=== PATIENT | female | born 1940 | race Caucasian/White ===

== ENCOUNTER 2021-12-23 10:07 | Emergency (ER) | payer MEDICARE, OTHER, SELFPAY ==
[2021-12-23 10:15] VITALS: BP 183/93; PULSE 86; RESP 18; TEMP 36.8; O2SAT 97; BMI 26.6
[2021-12-23 10:30] VITALS: BP 170/95; PULSE 86; RESP 19; O2SAT 96
--- NOTE | 2021-12-23 10:36 | ED.CHESTPAIN ---
HPI - Chest Pain General Chief Complaint: Chest Pain Stated Complaint: Chest pains, racing heart, fatigue, nausea Time Seen by Provider: 12/23/21 10:23 History of Present Illness HPI narrative: This 81-year-old female comes in reporting brief episodes of chest pain over the past week. She states that these last a few seconds and are not related to exertion. She did have a longer episode lasting about 5 minutes this morning. She had some nausea but no vomiting and had a sense of fatigue. Currently she is not having any chest discomfort. She states that she exercises regularly and typically walks more than a mi in a loop around her house. She does not have any symptoms when exerting herself. She does not report any shortness of breath. She did feel some increased heart rate this morning and states that this may have been related to some anxiety symptoms. She does have diabetes and is treating hypertension but her cholesterol has been managed with diet and activity. She is not a smoker. Related Data Home Medications Medication Instructions Recorded Confirmed alendronate 70 mg tablet mg PO 12/23/21 metformin 500 mg tablet mg 12/23/21 Allergies Allergy/AdvReac Type Severity Reaction Status Date / Time codeine Allergy Verified 12/23/21 10:24 epinephrine Allergy Verified 12/23/21 10:24 [id number] Reductase Allergy Verified 12/23/21 10:13 Inhibitor GLUTEN Allergy Uncoded 12/23/21 10:14 Review of Systems Status of ROS Reports: 10 or more systems reviewed and unremarkable except as noted in History and below Narrative Constitutional: No fevers, no weight gain or loss. Eyes: No discharge. No vision changes. HENT: No congestion, no sore throat, no ear pain. Cardiovascular: No palpitations. Chest pain as described above. Respiratory: No shortness of breath, no wheezes, no cough. Gastrointestinal: No abdominal pain, no vomiting, no diarrhea. Genitourinary: No dysuria, no hematuria. Musculoskeletal: Normal range of motion. Skin: No rashes, no pruritis. Neurological: No dizziness, weakness, sensory change, speech change. Endo/Heme/Allergies: No bruising or bleeding. No polydipsia. Pysch: no suicidality, no anxiety, no insomnia. All other systems reviewed and are negative. PFSH PFSH Social History Smoking Status: Never smoker Do you use any of these nicotine containing products: None Second hand tobacco smoke exposure: No How often do you have a drink containing alcohol: monthly or less How often do you have six or more drinks on one occasion: Never AUDIT-C Alcohol total score: 1 Non-prescribed substance use: denies use Exam Narrative Exam Narrative: Constitutional: Well-developed, well-nourished, no acute distress. HEENT: Normocephalic, atraumatic. Neck: Normal range of motion. Nontender. Supple. Heart: Regular. No murmurs. Normal rate. Intact distal pulses. Lungs: Clear to auscultation. No chest discomfort. No wheezes, rhonchi, or rales. Abdomen: Normal bowel sounds. Nontender. No rebound tenderness. Genitalia: Deferred. Back: No midline tenderness. Normal range of motion. Extremities: Normal range of motion. No injury. Skin: Intact. No rash. Warm. No erythema or pallor. Neurologic: No altered sensation. No weakness. Alert and oriented. Psychiatric: No suicidality. No anxiety or depression. No insomnia. Nursing notes and vitals signs are reviewed. Const Vital Signs, click to edit/add: Vital Signs - 24 hr 12/23/21 10:15 12/23/21 10:15 12/23/21 11:00 Temperature 98.3 F Pulse Rate [Right Pulse Oximeter] 86 79 Respiratory Rate 18 12 Blood Pressure [Left Upper Arm] 183/93 H 183/93 H 148/82 H Pulse Oximetry 97 95 Oxygen Delivery Method Room Air Room Air 12/23/21 11:31 12/23/21 10:30 12/23/21 10:45 Temperature Pulse Rate [Right Pulse Oximeter] 78 86 82 Respiratory Rate 13 19 17 Blood Pressure [Left Upper Arm] 139/73 170/95 H Pulse Oximetry 95 96 95 Oxygen Delivery Method Room Air Room Air Room Air Course Vital Signs Vital signs: Initial Vital Signs Temperature 98.3 F 12/23/21 10:15 Temperature Source Temporal Artery Scan 12/23/21 10:15 Pulse Rate 86 12/23/21 10:15 Respiratory Rate 18 12/23/21 10:15 Blood Pressure 183/93 H 12/23/21 10:15 Blood Pressure Mean 123 12/23/21 10:15 Blood Pressure Position Sitting 12/23/21 10:15 Pulse Oximetry 97 12/23/21 10:15 Oxygen Delivery Method 12/23/21 10:15 Vital Signs Temperature 98.3 F 12/23/21 10:15 Pulse Rate 86 12/23/21 10:15 Respiratory Rate 18 12/23/21 10:15 Blood Pressure 183/93 H 12/23/21 10:15 Pulse Oximetry 97 12/23/21 10:15 Oxygen Delivery Method 12/23/21 10:15 Temperature 98.3 F 12/23/21 10:15 Pulse Rate 78 12/23/21 11:31 Respiratory Rate 13 12/23/21 11:31 Blood Pressure 139/73 12/23/21 11:31 Pulse Oximetry 95 12/23/21 11:31 Oxygen Delivery Method 12/23/21 11:31 MDM - Chest Pain MDM Narrative Medical decision making narrative: This patient comes in with brief episodes of chest discomfort lasting seconds usually. There was 1 episode this morning that lasted a bit longer for a few minutes. Throughout her stay here she has not had any symptoms. She has good exercise tolerance and is very active. Her EKG shows normal sinus rhythm and no sign of ST or T-wave abnormalities. Additionally lab results all returned with normal findings. This patient is going to a exercise class called [employer]. She states that she is doing frequent upper extremity exercises. It seems that her symptoms are more musculoskeletal in nature. She is okay to return home to continue current plans. Lab Data Labs: Lab Results 12/23/21 12/23/21 Range/Units 10:51 10:51 WBC 5.78 (4.50-11.00) K/uL RBC 4.77 (4.00-5.20) m/uL Hgb 13.7 (12.0-16.0) gm/dL Hct 42.2 (33.0-51.0) % MCV 89 (80-100) fL MCH 29 (26-34) pg MCHC 33 (32-36) gm/dL RDW Coeff of Conchita 14.3 (11.5-15.5) % Plt Count 265 (140-440) K/uL Neut % (Auto) 74.0 H (42.0-72.0) % Lymph % (Auto) 16.4 L (20-44) % Putnam % (Auto) 8.0 (0.0-11.0) % Eos % (Auto) 0.9 (0.0-7.0) % Baso % (Auto) 0.5 (0.0-3.0) % Neut # (Auto) 4.30 (1.7-7.0) K/uL Lymph # (Auto) 0.90 (0.90-2.90) K/uL Putnam # (Auto) 0.50 (0.00-0.90) K/UL Eos # (Auto) 0.05 (0.00-0.50) K/uL Baso # (Auto) 0.03 (0.00-0.30) K/uL Abs Immat Gran (auto) 0.01 (0.00-0.30) K/uL Sodium 140 (135-149) mmol/L Potassium 4.0 (3.6-5.1) mmol/L Chloride 108 (96-114) mmol/L Carbon Dioxide 28 (20-32) mmol/L BUN 17 (7-30) mg/dL Creatinine 0.5 (0.5-1.5) mg/dL Estimated Creat Clear 42.00 Estimated GFR 95 ml/min Glucose 110 (60-115) mg/dL Calcium 8.6 (8.4-10.6) mg/dL Troponin I < 0.01 L (0.01-0.04) ng/mL ECG Data Attestation: I personally reviewed and interpreted this ECG as follows: Interpretation: Normal sinus rhythm. Rate is 80 beats per minute. There are no ST or T-wave abnormalities. Discharge Plan Discharge Clinical Impression: Atypical chest pain Patient Disposition: Home, Self-Care Condition: Stable Instructions: Chest Wall Pain (ED) Prescriptions: No Action metformin 500 mg tablet alendronate 70 mg tablet PO Label Comments: TAKE 1 TABLET BY MOUTH ONE TIME A WEEK IN THE MORNING ON AN EMPTY STOMACH AND WITH FULL GLASS OF WATER. DO NOT LIE DOWN FOR 1 HOUR Follow Up/Referrals: Ayaan Gomez MD [Primary Care Provider] - Stand Alone Forms: [facility] Info Instructions
[2021-12-23 10:45] VITALS: PULSE 82; RESP 17; O2SAT 95
[2021-12-23 10:55] LABS: Basophils Absolute Auto 0.03 K/uL (0.00-0.30); Basophils Percent Auto 0.5 % (0.0-3.0); Eosinophils Absolute Auto 0.05 K/uL (0.00-0.50); Eosinophils Percent Auto 0.9 % (0.0-7.0); Hematocrit 42.2 % (33.0-51.0); Hemoglobin* 13.7 gm/dL (12.0-16.0); Immature Granulocytes Abs Auto 0.01 K/uL (0.00-0.30); Lymphocytes Percent Auto 16.4 % (20-44); Mean Corpuscular HGB Conc 33 gm/dL (32-36); Mean Corpuscular Hemoglobin 29 pg (26-34); Mean Corpuscular Volume 89 fL (80-100); Platelet Count* 265 K/uL (140-440); RDW Coefficient of Variation % 14.3 % (11.5-15.5); Red Blood Count 4.77 m/uL (4.00-5.20); White Blood Count* 5.78 K/uL (4.50-11.00)
[2021-12-23 11:00] VITALS: BP 148/82; PULSE 79; RESP 12; O2SAT 95
[2021-12-23 11:03] LABS: Slide Review Reflex No
[2021-12-23 11:11] LABS: Chloride* 108 mmol/L (96-114); Sodium* 140 mmol/L (135-149)
[2021-12-23 11:14] LABS: Blood Urea Nitrogen* 17 mg/dL (7-30); Carbon Dioxide* 28 mmol/L (20-32); Creatinine* 0.5 mg/dL (0.5-1.5); Estimated Glomerular Filt Rate 95 ml/min; Glucose* 110 mg/dL (60-115)
[2021-12-23 11:15] LABS: Calcium* 8.6 mg/dL (8.4-10.6)
[2021-12-23 11:27] LABS: Troponin I* < 0.01 ng/mL (0.01-0.04)
[2021-12-23 11:31] VITALS: BP 139/73; PULSE 78; RESP 13; O2SAT 95
== END 2021-12-23 11:52 | disposition home or self-care (01) ==
PROVIDERS: Emergency Provider Emergency Medicine Emergency Medical Services; PCP Surgery
DX: R07.89 Other chest pain (principal)
CPT/HCPCS: 36415; 80048; 84484; 85025; 93005; 99284

== ENCOUNTER 2022-04-28 12:15 | Outpatient (CLI) | payer MEDICARE, OTHER, SELFPAY | END 2022-04-28 12:16 | disposition home or self-care (01) | LOC: OP CLINIC 12:17 | PROVIDERS: PCP Surgery; Visit Provider Internal Medicine Gastroenterology | DX: Z12.11 Encounter for screening for malignant neoplasm of colon (principal); K63.5 Polyp of colon; K57.30 Diverticulosis of large intestine without perforation or abscess without bleeding | CPT/HCPCS: 45385; 88305; J2250; J3010 ==

== ENCOUNTER 2023-06-05 12:42 | Outpatient (CLI) | payer MEDICARE, OTHER, SELFPAY | END 2023-06-05 12:43 | disposition home or self-care (01) | LOC: AMB 06-08 04:29 | PROVIDERS: PCP Surgery; Visit Provider Student in an Organized Health Care Education/Training Program | DX: R55 Syncope and collapse (principal); R53.1 Weakness; R42 Dizziness and giddiness | CPT/HCPCS: A0425; A0427 ==

== ENCOUNTER 2023-06-05 13:17 | Inpatient (IN) | payer MEDICARE, OTHER, SELFPAY ==
[2023-06-05] VITALS (28 sets, daily range): BP systolic 145–186; BP diastolic 74–95; PULSE 55–74; RESP 16–18; TEMP 35.9–36.6; O2SAT 90–97; BMI 25.8
--- NOTE | 2023-06-05 13:22 | CRLHL7_ITS ---
For Patients: As a result of the Cures Act, medical imaging exams and procedure reports are released immediately into your electronic medical record. You may view this report before your referring provider. If you have questions, please contact your health care provider. INDICATION: Confusion. TECHNIQUE: CT head without contrast. COMPARISON: MRI brain dated 04/07/2016. FINDINGS: Cerebral parenchyma: No evidence of acute territorial infarct. No acute intraparenchymal hemorrhage. No significant mass effect/midline shift. Normal juarez-white matter differentiation. Extra-axial spaces: No extra-axial collection or hemorrhage. Ventricles: Unremarkable. Calvarium: Small right parietal scalp hematoma. No underlying skull fracture. Visualized paranasal sinuses/mastoid air cells: Polypoid mucosal thickening of the left maxillary sinus. Posterior fossa: No cerebellar tonsillar herniation. Visualized orbits: Thinning of the bilateral lenses. No acute abnormality. IMPRESSION: 1. No acute intracranial abnormality. 2. Small right parietal scalp hematoma. No underlying skull fracture. Please note that all CT scans at this facility use dose modulation, iterative reconstruction, and/or weight-based dosing when appropriate to reduce radiation dose to as low as reasonably achievable. Dictated by Seth Frank MD @ 06/05/2023 2:24:56 PM (Electronically Signed)
--- NOTE | 2023-06-05 13:53 | ED.GENADULT ---
HPI - General Adult General Date Seen: 06/05/23 <Ayaan Jackson - Last Filed: 06/05/23 16:09> Chief complaint: Altered Mental Status <Ayaan Jackson DO - Last Filed: 06/05/23 16:09> Stated complaint: AMS <Ayaan Jackson - Last Filed: 06/05/23 16:09> Time Seen by Provider: 06/05/23 13:21 <Ayaan Jackson - Last Filed: 06/05/23 16:09> Source: patient and family <Ayaan Jackson - Last Filed: 06/05/23 16:09> Mode of arrival: EMS <Ayaan Jackson - Last Filed: 06/05/23 16:09> Limitations: no limitations <Ayaan Jackson - Last Filed: 06/05/23 16:09> History of Present Illness HPI narrative: ML 2-year-old female with a history of diabetes presenting to the emergency department for an episode of amnesia for. She states her morning was going well until she got back from a walk and says she was feeling very flushed and dizzy and felt like she needed to hold onto the wall to stay up. This occurred at about 10:30. Next thing she knew she was sitting in the chair that she was walking to and it was noon. She called her daughter who came to see her and the daughter states at that time the patient very shaky. Patient is back to her baseline at this time was complaining that her scalp hurts on the right side of the posterior parietal portion. Does not know she fell or what exactly happened. She thought it might have been her blood sugar that was off. EMS was called. Patient denies chest pain, shortness of breath, lightheadedness, dysuria, abdominal pain, weakness, numbness, fevers, chills, vision changes. States she does not have a headache given that is just the outside of her head that hurts. <Ayaan Jackson DO - Last Filed: 06/05/23 16:09> Related Data Home medications: Home Medications Medication Instructions Recorded Confirmed alendronate 70 mg tablet 70 mg PO QWEEK 12/23/21 06/05/23 metformin 500 mg tablet 500 mg PO DAILY 12/23/21 06/05/23 <Ayaan Jackson DO - Last Filed: 06/05/23 16:09> Allergies/adverse reactions: Allergies Allergy/AdvReac Type Severity Reaction Status Date / Time codeine Allergy Verified 12/23/21 10:24 epinephrine Allergy Verified 12/23/21 10:24 [id number] Reductase Allergy Verified 12/23/21 10:13 Inhibitor GLUTEN Allergy Uncoded 12/23/21 10:14 <Ayaan Jackson DO - Last Filed: 06/05/23 16:09> Review of Systems Status of ROS: Reports: 10 or more systems reviewed and unremarkable except as noted in History and below <Ayaan Jackson DO - Last Filed: 06/05/23 16:09> [facility] Social History: Social History Smoking Status: Never smoker Do you use any of these nicotine containing products: None Second hand tobacco smoke exposure: No How often do you have a drink containing alcohol: monthly or less How often do you have six or more drinks on one occasion: Never AUDIT-C Alcohol total score: 1 Non-prescribed substance use: denies use <Ayaan Jackson DO - Last Filed: 06/05/23 16:09> Exam Narrative: Exam Narrative: Const: Well-nourished, Well-developed, in mild distress Eyes: PERRL, no conjunctival injection, and symmetrical lids HENT: Atraumatic external nose and ears. Moist mucous membranes. Swelling noted to the posterior right parietal bone and is tender to palpation Neck: Symmetric, trachea midline, No thyromegaly. CVS: RRR, No murmurs or gallops. Peripheral pulses 2+ and equal in all extremities RESP: Unlabored respiratory effort. Clear to auscultation bilaterally. GI: Nontender/Nondistended, No rebound or guarding. MSK:Extremities w/o deformity, Normal Active ROM Skin: Warm, Dry. No rashes or lesions. Neuro: Normal Muscle tone, Cranial nerves 2-12 grossly intact, normal [id number], normal [id number], normal gait, normal strength 5/5 upper lower extremities bilaterally, normal sensation upper and lower extremities bilaterally, normal rapid alternating movements. Psych: Awake, Alert, & Oriented x3. Appropriate mood and affect. <Ayaan Jackson DO - Last Filed: 06/05/23 16:09> Const: Vital Signs, click to edit/add: Vital Signs - 24 hr 06/05/23 13:26 06/05/23 13:30 06/05/23 14:00 Temperature 97.9 F Pulse Rate Pulse Rate [Pulse Oximeter] 61 64 59 L Respiratory Rate 16 Blood Pressure Blood Pressure [Ri ght Upper Arm] 186/89 H 173/95 H 180/89 H Pulse Oximetry 97 97 92 Oxygen Delivery Me thod Room Air Room Air Room Air 06/05/23 14:31 06/05/23 14:32 06/05/23 14:41 Temperature Pulse Rate 73 64 63 Pulse Rate [Pulse Oximeter] Respiratory Rate Blood Pressure 183/82 H 173/82 H Blood Pressure [Ri ght Upper Arm] Pulse Oximetry 90 95 93 Oxygen Delivery Me thod 06/05/23 14:45 06/05/23 14:52 06/05/23 15:00 Temperature Pulse Rate 64 59 L 61 Pulse Rate [Pulse Oximeter] Respiratory Rate Blood Pressure 168/87 H Blood Pressure [Ri ght Upper Arm] Pulse Oximetry 94 90 92 Oxygen Delivery Me thod 06/05/23 15:02 06/05/23 15:11 06/05/23 15:11 Temperature Pulse Rate 60 74 74 Pulse Rate [Pulse Oximeter] Respiratory Rate Blood Pressure 163/83 H 162/86 H 162/86 H Blood Pressure [Ri ght Upper Arm] Pulse Oximetry 93 91 91 Oxygen Delivery Me thod 06/05/23 15:15 06/05/23 15:30 06/05/23 15:31 Temperature Pulse Rate 61 62 62 Pulse Rate [Pulse Oximeter] Respiratory Rate Blood Pressure 158/78 H Blood Pressure [Ri ght Upper Arm] Pulse Oximetry 92 95 94 Oxygen Delivery Me thod 06/05/23 15:32 06/05/23 15:45 06/05/23 17:35 Temperature Pulse Rate 61 61 61 Pulse Rate [Pulse Oximeter] Respiratory Rate Blood Pressure Blood Pressure [Ri ght Upper Arm] Pulse Oximetry 93 94 93 Oxygen Delivery Me thod 06/05/23 17:36 06/05/23 17:37 06/05/23 17:45 Temperature Pulse Rate 62 60 61 Pulse Rate [Pulse Oximeter] Respiratory Rate Blood Pressure 145/85 H Blood Pressure [Ri ght Upper Arm] Pulse Oximetry 90 92 92 Oxygen Delivery Me thod 06/05/23 18:00 Temperature Pulse Rate 61 Pulse Rate [Pulse Oximeter] Respiratory Rate Blood Pressure Blood Pressure [Ri ght Upper Arm] Pulse Oximetry 92 Oxygen Delivery Me thod <Ayaan Jackson, DO - Last Filed: 06/05/23 16:09> Vital Signs, click to edit/add: Vital Signs - 24 hr 06/05/23 13:26 06/05/23 13:30 06/05/23 14:00 Temperature 97.9 F Pulse Rate Pulse Rate [Pulse Oximeter] 61 64 59 L Respiratory Rate 16 Blood Pressure Blood Pressure [Ri ght Upper Arm] 186/89 H 173/95 H 180/89 H Pulse Oximetry 97 97 92 Oxygen Delivery Me thod Room Air Room Air Room Air 06/05/23 14:31 06/05/23 14:32 06/05/23 14:41 Temperature Pulse Rate 73 64 63 Pulse Rate [Pulse Oximeter] Respiratory Rate Blood Pressure 183/82 H 173/82 H Blood Pressure [Ri ght Upper Arm] Pulse Oximetry 90 95 93 Oxygen Delivery Me thod 06/05/23 14:45 06/05/23 14:52 06/05/23 15:00 Temperature Pulse Rate 64 59 L 61 Pulse Rate [Pulse Oximeter] Respiratory Rate Blood Pressure 168/87 H Blood Pressure [Ri ght Upper Arm] Pulse Oximetry 94 90 92 Oxygen Delivery Me thod 06/05/23 15:02 06/05/23 15:11 06/05/23 15:11 Temperature Pulse Rate 60 74 74 Pulse Rate [Pulse Oximeter] Respiratory Rate Blood Pressure 163/83 H 162/86 H 162/86 H Blood Pressure [Ri ght Upper Arm] Pulse Oximetry 93 91 91 Oxygen Delivery Me thod 06/05/23 15:15 06/05/23 15:30 06/05/23 15:31 Temperature Pulse Rate 61 62 62 Pulse Rate [Pulse Oximeter] Respiratory Rate Blood Pressure 158/78 H Blood Pressure [Ri ght Upper Arm] Pulse Oximetry 92 95 94 Oxygen Delivery Me thod 06/05/23 15:32 06/05/23 15:45 06/05/23 17:35 Temperature Pulse Rate 61 61 61 Pulse Rate [Pulse Oximeter] Respiratory Rate Blood Pressure Blood Pressure [Ri ght Upper Arm] Pulse Oximetry 93 94 93 Oxygen Delivery Me thod 06/05/23 17:36 06/05/23 17:37 06/05/23 17:45 Temperature Pulse Rate 62 60 61 Pulse Rate [Pulse Oximeter] Respiratory Rate Blood Pressure 145/85 H Blood Pressure [Ri ght Upper Arm] Pulse Oximetry 90 92 92 Oxygen Delivery Me thod 06/05/23 18:00 Temperature Pulse Rate 61 Pulse Rate [Pulse Oximeter] Respiratory Rate Blood Pressure Blood Pressure [Ri ght Upper Arm] Pulse Oximetry 92 Oxygen Delivery Me thod <Mike Ibarra MD - Last Filed: 06/05/23 18:17> Course Course ED Course: 4:15 p.m. care discussed with Dr. Jackson at sign-out. Patient presents with what sounds like a syncopal episode and loss of time today. Labs demonstrate urinary tract infection, otherwise reassuring. Head CT was negative, patient is getting MRI. If this is negative, patient can be discharged from a neurologic standpoint. However, patient may need to be admitted for urinary tract infection with generalized weakness. Rocephin given for urinary tract infection. <Mike Ibarra MD - Last Filed: 06/05/23 18:17> Reevaluation(s) Time of Reevaluation #1: 18:11 <Mike Ibarra MD - Last Filed: 06/05/23 18:17> Reevaluation #1: MRI negative for acute ischemia, possible micro hemorrhages versus amyloid angiopathy which can be followed up as an outpatient. Patient is still quite dizzy in spite of Zofran, meclizine, and Ativan. Plan for admission for treatment of her urinary tract infection and vertigo. <Mike Ibarra MD - Last Filed: 06/05/23 18:17> Vital Signs Vital signs: Initial Vital Signs Temperature 97.9 F 06/05/23 13:26 Temperature Source Temporal Artery Scan 06/05/23 13:26 Pulse Rate 61 06/05/23 13:26 Respiratory Rate 16 06/05/23 13:26 Blood Pressure 186/89 H 06/05/23 13:26 Blood Pressure Mean 121 H 06/05/23 13:26 Blood Pressure Position Supine 06/05/23 13:26 Pulse Oximetry 97 06/05/23 13:26 Oxygen Delivery Method Room Air 06/05/23 13:26 Vital Signs Temperature 97.9 F 06/05/23 13:26 Pulse Rate 61 06/05/23 13:26 Respiratory Rate 16 06/05/23 13:26 Blood Pressure 186/89 H 06/05/23 13:26 Pulse Oximetry 97 06/05/23 13:26 Oxygen Delivery Method Room Air 06/05/23 13:26 Temperature 97.9 F 06/05/23 13:26 Pulse Rate 61 06/05/23 18:00 Respiratory Rate 16 06/05/23 13:26 Blood Pressure 145/85 H 06/05/23 17:36 Pulse Oximetry 92 06/05/23 18:00 Oxygen Delivery Method Room Air 06/05/23 14:00 <Ayaan Jackson DO - Last Filed: 06/05/23 16:09> Initial Vital Signs Temperature 97.9 F 06/05/23 13:26 Temperature Source Temporal Artery Scan 06/05/23 13:26 Pulse Rate 61 06/05/23 13:26 Respiratory Rate 16 06/05/23 13:26 Blood Pressure 186/89 H 06/05/23 13:26 Blood Pressure Mean 121 H 06/05/23 13:26 Blood Pressure Position Supine 06/05/23 13:26 Pulse Oximetry 97 06/05/23 13:26 Oxygen Delivery Method Room Air 06/05/23 13:26 Vital Signs Temperature 97.9 F 06/05/23 13:26 Pulse Rate 61 06/05/23 13:26 Respiratory Rate 16 06/05/23 13:26 Blood Pressure 186/89 H 06/05/23 13:26 Pulse Oximetry 97 06/05/23 13:26 Oxygen Delivery Method Room Air 06/05/23 13:26 Temperature 97.9 F 06/05/23 13:26 Pulse Rate 61 06/05/23 18:00 Respiratory Rate 16 06/05/23 13:26 Blood Pressure 145/85 H 06/05/23 17:36 Pulse Oximetry 92 06/05/23 18:00 Oxygen Delivery Method Room Air 06/05/23 14:00 <Mike Ibarra MD - Last Filed: 06/05/23 18:17> Medications Administered Medications: Generic Name Dose Route Start Last Admin Trade Name Freq PRN Reason Stop Dose Admin Lorazepam 0.25 mg 06/05/23 15:51 06/05/23 15:55 Lorazepam 2 Mg/Ml Inj IVP 0.25 mg Q6H PRN Administration Ondansetron HCl 4 mg 06/05/23 18:07 06/05/23 17:55 Ondansetron 2 Mg/Ml Inj IVP 06/05/23 18:08 4 mg ONCE ONE Administration Discontinued Medications Generic Name Dose Route Start Last Admin Trade Name Freq PRN Reason Stop Dose Admin Lactated Ringer's 1,000 mls @ 1,000 mls/hr 06/05/23 14:49 06/05/23 18:02 Lactated Ringers 1000 Ml IV 06/05/23 15:48 Infused .Q1H ONE Infusion Ceftriaxone Sodium 1 gm/ 100 mls @ 200 mls/hr 06/05/23 15:34 06/05/23 18:01 Sodium Chloride IVPB 06/05/23 15:35 200 mls/hr ONCE ONE Administration Meclizine HCl 25 mg 06/05/23 14:49 06/05/23 15:10 Meclizine Hcl 25 Mg Tablet PO 06/05/23 14:50 25 mg ONCE ONE Administration Ondansetron HCl 4 mg 06/05/23 14:36 06/05/23 14:35 Ondansetron 2 Mg/Ml Inj IVP 06/05/23 14:37 4 mg ONCE ONE Administration <Ayaan Jackson, DO - Last Filed: 06/05/23 16:09> Generic Name Dose Route Start Last Admin Trade Name Freq PRN Reason Stop Dose Admin Lorazepam 0.25 mg 06/05/23 15:51 06/05/23 15:55 Lorazepam 2 Mg/Ml Inj IVP 0.25 mg Q6H PRN Administration Ondansetron HCl 4 mg 06/05/23 18:07 06/05/23 17:55 Ondansetron 2 Mg/Ml Inj IVP 06/05/23 18:08 4 mg ONCE ONE Administration Discontinued Medications Generic Name Dose Route Start Last Admin Trade Name Freq PRN Reason Stop Dose Admin Lactated Ringer's 1,000 mls @ 1,000 mls/hr 06/05/23 14:49 06/05/23 18:02 Lactated Ringers 1000 Ml IV 06/05/23 15:48 Infused .Q1H ONE Infusion Ceftriaxone Sodium 1 gm/ 100 mls @ 200 mls/hr 06/05/23 15:34 06/05/23 18:01 Sodium Chloride IVPB 06/05/23 15:35 200 mls/hr ONCE ONE Administration Meclizine HCl 25 mg 06/05/23 14:49 06/05/23 15:10 Meclizine Hcl 25 Mg Tablet PO 06/05/23 14:50 25 mg ONCE ONE Administration Ondansetron HCl 4 mg 06/05/23 14:36 06/05/23 14:35 Ondansetron 2 Mg/Ml Inj IVP 06/05/23 14:37 4 mg ONCE ONE Administration <Mike Ibarra MD - Last Filed: 06/05/23 18:17> Medical Decision Making MDM Narrative Medical decision making narrative: Patient is an 82-year-old female presenting to the emergency department for an episode of amnesia. She can not remember about an hour and half of her day and when family arrived they said she was shaking and not acting quite right. Concerns at this time include stroke, seizure, infection, total global amnesia, syncope. Will order CBC, CMP, COVID/flu/RSV, troponin, urinalysis, magnesium, CT scan of the head. She has been fine in the emergency department but the after she states symptoms initially resolved she got up became very nauseated and dizzy again. 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 Will give her meclizine. She is also stating her right side of his face feels relatively numb compared to to the rest of her face. She states the entire right side of the face. she thinks it is getting slightly better but still not back to normal. Rest of her lab work shows no concerning findings other than a quite clear UTI. This could be the main source of all her symptoms but considering everything I will do an MRI of the brain. I spoke to [facility] and they recommended a tele neuro consult and MRI with and without contrast for seizure evaluation. Patient will be started on Rocephin for antibiotic coverage. I spoke to Dr. Albarado about this patient and he says son is the MRI is negative from a Neurological standpoint she can be discharged home. If there is any abnormalities week and call back for updates. I ordered orthostatic blood pressures. Of note she would have random episodes of hypoxia where she would feel all fine but her oxygen saturation be in the 80s. She with the plan back up into the 90s. Unsure what this is from so we did ordered a chest x-ray and I did not see abnormalities. Radiologist read is pending. This time patient will be signed out to my colleague Dr. Ibarra <Ayaan Jackson, DO - Last Filed: 06/05/23 16:09> Lab Data Labs: Lab Results 06/05/23 06/05/23 06/05/23 Range/Units 14:17 14:18 14:25 WBC 8.30 (4.50-11.00) K/uL RBC 4.84 (4.00-5.20) m/uL Hgb 13.9 (12.0-16.0) gm/dL Hct 44.1 (33.0-51.0) % MCV 91 (80-100) fL MCH 29 (26-34) pg MCHC 32 (32-36) gm/dL RDW Coeff of Conchita 14.1 (11.5-15.5) % Plt Count 239 (140-440) K/uL Neut % (Auto) 82.2 H (42.0-72.0) % Lymph % (Auto) 11.3 L (20-44) % [place] % (Auto) 5.8 (0.0-11.0) % Eos % (Auto) 0.4 (0.0-7.0) % Baso % (Auto) 0.2 (0.0-3.0) % Neut # (Auto) 6.80 (1.7-7.0) K/uL Lymph # (Auto) 0.90 (0.90-2.90) K/uL [place] # (Auto) 0.50 (0.00-0.90) K/UL Eos # (Auto) 0.03 (0.00-0.50) K/uL Baso # (Auto) 0.02 (0.00-0.30) K/uL Abs Immat Gran (auto) 0.01 (0.00-0.30) K/uL Imm/Tot Granulo (auto) 0.1 % Sodium 137 (135-149) mmol/L Potassium 3.7 (3.6-5.1) mmol/L Chloride 104 (96-114) mmol/L Carbon Dioxide 26 (20-32) mmol/L Anion Gap 7 (7-15) mEq/L BUN 21 (7-30) mg/dL Creatinine 0.6 (0.5-1.5) mg/dL Estimated GFR 90 ml/min Glucose 127 H (60-115) mg/dL Calcium 9.2 (8.4-10.6) mg/dL Magnesium 2.2 (1.5-2.6) mg/dL Total Bilirubin 0.4 (0.1-1.5) mg/dL AST 31 (12-35) U/L ALT 21 (4-35) U/L Alkaline Phosphatase 71 (40-150) U/L Troponin I < 0.01 L (0.01-0.04) ng/mL Total Protein 7.1 (6.0-8.3) g/dL Albumin 4.4 (3.3-5.0) g/dL Urine Color Yellow (Yellow) Urine Appearance Cloudy A (Clear) Urine pH 6.0 (5.0-8.5) Ur Specific Staples 1.020 (1.000-1.030) Urine Protein Negative (Negative) Urine Glucose (UA) Negative (Negative) Urine Ketones Negative (Negative) Urine Blood Trace-intact A (Negative) Urine Nitrite Positive A (Negative) Urine Bilirubin Negative (Negative) Urine Urobilinogen 0.2 (0.2-1.0) Ur Leukocyte Esterase 1+ A (Negative) Urine RBC 2-5 A (0-2) Urine WBC >100 A (0-5) Ur Squamous Epith Cells Few (None-Few) Urine Bacteria Many A (None) SARS-CoV-2 (PCR) Negative SARS-CoV-2 (Negative) Influenza Type A (PCR) Negative PCR FLU A (Negative) Influenza Type B (PCR) Negative PCR FLU B (Negative) RSV (PCR) Negative PCR RSV (Negative) POC Glucose (60-115) mg/dl POC Troponin I (0.01-0.04) ng/ml 06/05/23 06/05/23 Range/Units 16:00 18:00 WBC (4.50-11.00) K/uL RBC (4.00-5.20) m/uL Hgb (12.0-16.0) gm/dL Hct (33.0-51.0) % MCV (80-100) fL MCH (26-34) pg MCHC (32-36) gm/dL RDW Coeff of Conchita (11.5-15.5) % Plt Count (140-440) K/uL Neut % (Auto) (42.0-72.0) % Lymph % (Auto) (20-44) % [place] % (Auto) (0.0-11.0) % Eos % (Auto) (0.0-7.0) % Baso % (Auto) (0.0-3.0) % Neut # (Auto) (1.7-7.0) K/uL Lymph # (Auto) (0.90-2.90) K/uL [place] # (Auto) (0.00-0.90) K/UL Eos # (Auto) (0.00-0.50) K/uL Baso # (Auto) (0.00-0.30) K/uL Abs Immat Gran (auto) (0.00-0.30) K/uL Imm/Tot Granulo (auto) % Sodium (135-149) mmol/L Potassium (3.6-5.1) mmol/L Chloride (96-114) mmol/L Carbon Dioxide (20-32) mmol/L Anion Gap (7-15) mEq/L BUN (7-30) mg/dL Creatinine (0.5-1.5) mg/dL Estimated GFR ml/min Glucose (60-115) mg/dL Calcium (8.4-10.6) mg/dL Magnesium (1.5-2.6) mg/dL Total Bilirubin (0.1-1.5) mg/dL AST (12-35) U/L ALT (4-35) U/L Alkaline Phosphatase (40-150) U/L Troponin I (0.01-0.04) ng/mL Total Protein (6.0-8.3) g/dL Albumin (3.3-5.0) g/dL Urine Color (Yellow) Urine Appearance (Clear) Urine pH (5.0-8.5) Ur Specific Staples (1.000-1.030) Urine Protein (Negative) Urine Glucose (UA) (Negative) Urine Ketones (Negative) Urine Blood (Negative) Urine Nitrite (Negative) Urine Bilirubin (Negative) Urine Urobilinogen (0.2-1.0) Ur Leukocyte Esterase (Negative) Urine RBC (0-2) Urine WBC (0-5) Ur Squamous Epith Cells (None-Few) Urine Bacteria (None) SARS-CoV-2 (PCR) (Negative) Influenza Type A (PCR) (Negative) Influenza Type B (PCR) (Negative) RSV (PCR) (Negative) POC Glucose 115 (60-115) mg/dl POC Troponin I 0.00 L (0.01-0.04) ng/ml <Ayaan Jackson, DO - Last Filed: 06/05/23 16:09> Lab Results 06/05/23 06/05/23 06/05/23 Range/Units 14:17 14:18 14:25 WBC 8.30 (4.50-11.00) K/uL RBC 4.84 (4.00-5.20) m/uL Hgb 13.9 (12.0-16.0) gm/dL Hct 44.1 (33.0-51.0) % MCV 91 (80-100) fL MCH 29 (26-34) pg MCHC 32 (32-36) gm/dL RDW Coeff of Conchita 14.1 (11.5-15.5) % Plt Count 239 (140-440) K/uL Neut % (Auto) 82.2 H (42.0-72.0) % Lymph % (Auto) 11.3 L (20-44) % [place] % (Auto) 5.8 (0.0-11.0) % Eos % (Auto) 0.4 (0.0-7.0) % Baso % (Auto) 0.2 (0.0-3.0) % Neut # (Auto) 6.80 (1.7-7.0) K/uL Lymph # (Auto) 0.90 (0.90-2.90) K/uL [place] # (Auto) 0.50 (0.00-0.90) K/UL Eos # (Auto) 0.03 (0.00-0.50) K/uL Baso # (Auto) 0.02 (0.00-0.30) K/uL Abs Immat Gran (auto) 0.01 (0.00-0.30) K/uL Imm/Tot Granulo (auto) 0.1 % Sodium 137 (135-149) mmol/L Potassium 3.7 (3.6-5.1) mmol/L Chloride 104 (96-114) mmol/L Carbon Dioxide 26 (20-32) mmol/L Anion Gap 7 (7-15) mEq/L BUN 21 (7-30) mg/dL Creatinine 0.6 (0.5-1.5) mg/dL Estimated GFR 90 ml/min Glucose 127 H (60-115) mg/dL Calcium 9.2 (8.4-10.6) mg/dL Magnesium 2.2 (1.5-2.6) mg/dL Total Bilirubin 0.4 (0.1-1.5) mg/dL AST 31 (12-35) U/L ALT 21 (4-35) U/L Alkaline Phosphatase 71 (40-150) U/L Troponin I < 0.01 L (0.01-0.04) ng/mL Total Protein 7.1 (6.0-8.3) g/dL Albumin 4.4 (3.3-5.0) g/dL Urine Color Yellow (Yellow) Urine Appearance Cloudy A (Clear) Urine pH 6.0 (5.0-8.5) Ur Specific Staples 1.020 (1.000-1.030) Urine Protein Negative (Negative) Urine Glucose (UA) Negative (Negative) Urine Ketones Negative (Negative) Urine Blood Trace-intact A (Negative) Urine Nitrite Positive A (Negative) Urine Bilirubin Negative (Negative) Urine Urobilinogen 0.2 (0.2-1.0) Ur Leukocyte Esterase 1+ A (Negative) Urine RBC 2-5 A (0-2) Urine WBC >100 A (0-5) Ur Squamous Epith Cells Few (None-Few) Urine Bacteria Many A (None) SARS-CoV-2 (PCR) Negative SARS-CoV-2 (Negative) Influenza Type A (PCR) Negative PCR FLU A (Negative) Influenza Type B (PCR) Negative PCR FLU B (Negative) RSV (PCR) Negative PCR RSV (Negative) POC Glucose (60-115) mg/dl POC Troponin I (0.01-0.04) ng/ml 06/05/23 06/05/23 Range/Units 16:00 18:00 WBC (4.50-11.00) K/uL RBC (4.00-5.20) m/uL Hgb (12.0-16.0) gm/dL Hct (33.0-51.0) % MCV (80-100) fL MCH (26-34) pg MCHC (32-36) gm/dL RDW Coeff of Conchita (11.5-15.5) % Plt Count (140-440) K/uL Neut % (Auto) (42.0-72.0) % Lymph % (Auto) (20-44) % [place] % (Auto) (0.0-11.0) % Eos % (Auto) (0.0-7.0) % Baso % (Auto) (0.0-3.0) % Neut # (Auto) (1.7-7.0) K/uL Lymph # (Auto) (0.90-2.90) K/uL [place] # (Auto) (0.00-0.90) K/UL Eos # (Auto) (0.00-0.50) K/uL Baso # (Auto) (0.00-0.30) K/uL Abs Immat Gran (auto) (0.00-0.30) K/uL Imm/Tot Granulo (auto) % Sodium (135-149) mmol/L Potassium (3.6-5.1) mmol/L Chloride (96-114) mmol/L Carbon Dioxide (20-32) mmol/L Anion Gap (7-15) mEq/L BUN (7-30) mg/dL Creatinine (0.5-1.5) mg/dL Estimated GFR ml/min Glucose (60-115) mg/dL Calcium (8.4-10.6) mg/dL Magnesium (1.5-2.6) mg/dL Total Bilirubin (0.1-1.5) mg/dL AST (12-35) U/L ALT (4-35) U/L Alkaline Phosphatase (40-150) U/L Troponin I (0.01-0.04) ng/mL Total Protein (6.0-8.3) g/dL Albumin (3.3-5.0) g/dL Urine Color (Yellow) Urine Appearance (Clear) Urine pH (5.0-8.5) Ur Specific Sta[place] (1.000-1.030) Urine Protein (Negative) Urine Glucose (UA) (Negative) Urine Ketones (Negative) Urine Blood (Negative) Urine Nitrite (Negative) Urine Bilirubin (Negative) Urine Urobilinogen (0.2-1.0) Ur Leukocyte Esterase (Negative) Urine RBC (0-2) Urine WBC (0-5) Ur Squamous Epith Cells (None-Few) Urine Bacteria (None) SARS-CoV-2 (PCR) (Negative) Influenza Type A (PCR) (Negative) Influenza Type B (PCR) (Negative) RSV (PCR) (Negative) POC Glucose 115 (60-115) mg/dl POC Troponin I 0.00 L (0.01-0.04) ng/ml <Mike Ibarra MD - Last Filed: 06/05/23 18:17> Imaging Data CT scan - head: Radiologist's impression: 1. No acute intracranial abnormality. 2. Small right parietal scalp hematoma. No underlying skull fracture. Please note that all CT scans at this facility use dose modulation, iterative reconstruction, and/or weight-based dosing when appropriate to reduce radiation dose to as low as reasonably achievable. Dictated by Seth Frank MD @ 06/05/2023 2:24:56 PM <Ayaan Jackson DO - Last Filed: 06/05/23 16:09> ECG Data Attestation: I personally reviewed and interpreted this ECG as follows: <Ayaan Jackson DO - Last Filed: 06/05/23 16:09> Prior ECG tracings: available for review <Ayaan Jackson DO - Last Filed: 06/05/23 16:09> Interpretation: Normal sinus rhythm with a rate of 60 beats per minute, normal intervals, normal axis, no ST or T-wave abnormalities. Appears similar previous EKG on 5 <Ayaan Jackson DO - Last Filed: 06/05/23 16:09> Discharge Plan Discharge Clinical Impression: Acute UTI, Syncope, Vertigo <Ayaan Jackson DO - Last Filed: 06/05/23 16:09> Patient Disposition: Admitted As Observation <Ayaan Jackson DO - Last Filed: 06/05/23 16:09> Condition: Stable <Ayaan Jackson DO - Last Filed: 06/05/23 16:09>
[2023-06-05 14:25] LABS: Appearance Urine Cloudy (Clear); Bilirubin Urine Negative (Negative); Blood Urine Trace-intact (Negative); Color Urine Yellow (Yellow); Glucose Urine Negative (Negative); Ketones Urine Negative (Negative); Leukocyte Esterase Urine 1+ (Negative); Nitrite Urine Positive (Negative); Protein Urine Negative (Negative); Urobilinogen Urine 0.2 (0.2-1.0)
--- NOTE | 2023-06-05 14:32 | ED.NURSE ---
Patient was very dizzy and began dry heaving while in the bathroom leaving UA. Applied cold wash cloth to face and assisted back to bed. Provider updated.
[2023-06-05 14:33] LABS: Basophils Absolute Auto 0.02 K/uL (0.00-0.30); Basophils Percent Auto 0.2 % (0.0-3.0); Eosinophils Absolute Auto 0.03 K/uL (0.00-0.50); Eosinophils Percent Auto 0.4 % (0.0-7.0); Hematocrit 44.1 % (33.0-51.0); Hemoglobin* 13.9 gm/dL (12.0-16.0); Immature Granulocytes Abs Auto 0.01 K/uL (0.00-0.30); Immature Granulocytes Pct Auto 0.1 %; Lymphocytes Percent Auto 11.3 % (20-44); Mean Corpuscular HGB Conc 32 gm/dL (32-36); Mean Corpuscular Hemoglobin 29 pg (26-34); Mean Corpuscular Volume 91 fL (80-100); Monocytes Percent Auto 5.8 % (0.0-11.0); Neutrophils Percent Auto 82.2 % (42.0-72.0); Platelet Count* 239 K/uL (140-440); RDW Coefficient of Variation % 14.1 % (11.5-15.5); Red Blood Count 4.84 m/uL (4.00-5.20)
[2023-06-05 14:34] LABS: Slide Review Reflex No
[2023-06-05] MEDS: ONDANSETRON 2 MG/ML inj 4 MG IVP ×2 (14:35→17:55)
[2023-06-05 14:47] LABS: Albumin* 4.4 g/dL (3.3-5.0); Chloride* 104 mmol/L (96-114); Potassium* 3.7 mmol/L (3.6-5.1); Sodium* 137 mmol/L (135-149)
[2023-06-05 14:49] LABS: Creatinine* 0.6 mg/dL (0.5-1.5)
[2023-06-05 14:50] LABS: Alanine Aminotransferase* 21 U/L (4-35); Alkaline Phosphatase* 71 U/L (40-150); Anion Gap 7 mEq/L (7-15); Aspartate Amino Transferase* 31 U/L (12-35); Bilirubin Total* 0.4 mg/dL (0.1-1.5); Blood Urea Nitrogen* 21 mg/dL (7-30); Calcium* 9.2 mg/dL (8.4-10.6); Carbon Dioxide* 26 mmol/L (20-32); Estimated Glomerular Filt Rate 90 ml/min; Glucose* 127 mg/dL (60-115); Magnesium* 2.2 mg/dL (1.5-2.6); Total Protein* 7.1 g/dL (6.0-8.3)
[2023-06-05 14:55] LABS: Bacteria Urine Many; Squamous Epithelial Cell Urine Few (None-Few); WBC Urine >100 (0-5)
[2023-06-05 15:04] LABS: PCR FLU A Negative PCR FLU A (Negative); PCR FLU B Negative PCR FLU B (Negative); PCR RSV Negative PCR RSV (Negative); SARS PCR* Negative SARS-CoV-2 (Negative)
[2023-06-05 15:04] LABS: Troponin I* < 0.01 ng/mL (0.01-0.04)
[2023-06-05] MEDS: LACTATED RINGERS 1000 ML 1,000 ML IV (15:10)
[2023-06-05] MEDS: MECLIZINE HCL 25 MG TABLET PO (15:10)
--- NOTE | 2023-06-05 15:20 | ED.NURSE ---
Pt reporting r-sided facial numbness, notified.
--- NOTE | 2023-06-05 15:29 | CRLHL7_ITS ---
For Patients: As a result of the Century Cures Act, medical imaging exams and procedure reports are released immediately into your electronic medical record. You may view this report before your referring provider. If you have questions, please contact your health care provider. INDICATION: Hypoxia. TECHNIQUE: Chest 1 views. COMPARISON: July 18, 2019. FINDINGS: Patient is rotated. Cardiovascular and mediastinum: Heart size and vasculature are normal in caliber and appearance. Lungs and pleural spaces: Elevation of the left hemidiaphragm. Lungs are clear. No sign of infiltrate or mass. No sign of pleural effusion. No pneumothorax. Bones and soft tissues: No significant findings. IMPRESSION: Patient is rotated. No acute findings and no significant changes from the prior exam. Dictated by Kristopher Mary MD @ 06/05/2023 4:11:59 PM (Electronically Signed)
--- NOTE | 2023-06-05 15:29 | ED.NURSE ---
Pt O2 satting at ~81% on room air. Pt sleeping in room, pt roused by business writer and encouraged to take deep breaths. notified and in room as well. O2 sats remained in 80's% for approximately 2 mins, O2 then recovered into mid-90's%.
--- NOTE | 2023-06-05 15:51 | CRLHL7_ITS ---
For Patients: As a result of the Century Cures Act, medical imaging exams and procedure reports are released immediately into your electronic medical record. You may view this report before your referring provider. If you have questions, please contact your health care provider. INDICATION: Vertigo. Fall. TECHNIQUE: Brain MRI with contrast. The following sequences were obtained: Sagittal T1 weighted sequence. DWI and ADC mapping sequences. Axial FLAIR and DARRIUS T2 weighted sequences. Susceptibility weighted or GRE sequence. T1 weighted post-contrast sequence(s). 15 cc of Dotarem gadolinium based contrast agent was used. COMPARISON: Brain MRI from 04/07/2016. FINDINGS: No evidence of acute ischemia. No evidence of acute or chronic intracranial blood products. No mass or pathologic intracranial enhancement. Foci of susceptibility artifact within the high cerebral hemispheres, most compatible with microhemorrhages and possibly from amyloid angiopathy. Scattered FLAIR hyperintensities within the supratentorial white matter, typical for chronic microvascular ischemic changes. No hydrocephalus or extra-axial collections. The pituitary gland, parasellar structures and optic chiasm are normal. Posterior fossa is normal. All the major intracranial vascular structures demonstrate normal flow-related signal. The orbital contents are normal. No calvarial or skull base marrow signal abnormality. No obstructive sinus disease. Large right parietal scalp hematoma. IMPRESSION: 1. No acute ischemia or other acute intracranial pathology. 2. No mass or pathologic intracranial enhancement. 3. Susceptibility artifact within the high cerebral hemispheres, most compatible with microhemorrhages and possibly from amyloid angiopathy. 4. Mild chronic microvascular ischemic changes. Stable. 5. Right parietal scalp hematoma. Dictated by Stanley Mitchell MD @ 06/05/2023 6:09:30 PM (Electronically Signed)
[2023-06-05] MEDS: LORazepam 2 MG/ML inj 0.25 MG IVP (15:55)
[2023-06-05] MEDS: cefTRIAXone 1 GM in 0.9 % SODIUM CHLORIDE Mini-bag 100 ML IVPB (18:01)
[2023-06-05 18:14] LABS: Glucose, Point-of-Care* 115 mg/dl (60-115)
--- NOTE | 2023-06-05 18:50 | P.IMHP_ITS ---
Hospitalist- H&P: CORI History of Present Illness Date Seen: 06/05/23 Chief complaint: AMS Narrative: Loraine Jewell is a 82 year old female past medical history significant for type 2 diabetes mellitus on metformin, hypercholesterolemia, vitiligo, osteoporosis on calcium and vitamin-D, anxiety, malignant neoplasm of cervix s/p surgery 23 years ago is admitted to the medical floor from the ED for further management acute cystitis with symptomatic dizziness and weakness. Patient reports feeling her normal self last evening and when awaking this morning. Went on her usual vigorous walk this morning and returned home anticipating a zoom workout class. She tells me that when she walked into her home she started to feel flushed, felt that her face, especially the right side, was very cold and numb like (temperature was less than 10? this morning with a cold wind chill). She then reports feeling weak and dizzy (off balance, not vertiginous) and needing to use her hands to hold on to surrounding appliances/furniture to walk. This was after 10:00 a.m.. She then awoke around noon, finding herself in a wood dining chair, with a high back, which rests upon the wooden frame of the window. Her coat was on the floor though she does not remember taking it off. She initially thought maybe she fell but had no recollection then how she got to the chair. She denies any pain, bruising, scrapes of the knees, hands. She has no pain in her joints from a fall. She has a bump on the right side of her head but when speaking with her and her daughter, she very well may have struck the back of her head on the chair or window frame when sitting. When she awoke, she called her daughter who came to her home. She did not check her blood sugar but did have a cheese stick. Upon their arrival, EMS checked her blood sugar after her snack and it was 140. Currently, patient denies headache. Scalp hematoma is tender when touched. Continues to feel dizzy, off balance as she describes it, without vertigo like symptoms. Feels like she could fall. Denies recent fevers or chills. Denies nausea, vomiting, diarrhea. Denies urinary symptoms though admits urine might have been cloudy for the past several days. Patient is a nonsmoker. Rare alcohol use. Review of Systems Narrative: REVIEW OF SYSTEMS: Complete review of systems performed and negative unless otherwise stated in HPI or below. [facility] Medical History (Updated 06/05/23 @ 20:45 by Pema Ortiz PA-C) Vertigo ?R42 - Dizziness and giddiness (ICD-10) Malignant neoplasm of cervix ?C53.9 - Malignant neoplasm of cervix uteri, unspecified (ICD-10) Vitiligo ?L80 - Vitiligo (ICD-10) Anxiety ?F41.9 - Anxiety disorder, unspecified (ICD-10) Osteoporosis ?M81.0 - Age-related osteoporosis without current pathological fracture (ICD- 10) Diabetes mellitus type 2 in nonobese ?E11.9 - Type 2 diabetes mellitus without complications (ICD-10) Hypercholesterolemia ?E78.00 - Pure hypercholesterolemia, unspecified (ICD-10) Social History Smoking Status: Never smoker Do you use any of these nicotine containing products: None Second hand tobacco smoke exposure: No How often do you have a drink containing alcohol: monthly or less How often do you have six or more drinks on one occasion: Never AUDIT-C Alcohol total score: 1 Non-prescribed substance use: denies use Meds Home Medications and Allergies Home Medications Medication Instructions Recorded Confirmed Type alendronate 70 mg tablet 70 mg PO QWEEK 12/23/21 06/05/23 History metformin 500 mg tablet 500 mg PO DAILY 12/23/21 06/05/23 History Allergies Allergy/AdvReac Type Severity Reaction Status Date / Time codeine Allergy Verified 12/23/21 10:24 epinephrine Allergy Verified 12/23/21 10:24 [id number]-ABI-PhA Reductase Allergy Verified 12/23/21 10:13 Inhibitor GLUTEN Allergy Uncoded 12/23/21 10:14 Exam Narrative: Exam Narrative: PHYSICAL EXAM General: Pleasant, conversant, NAD HEENT: Posterior scalp, right side, with swelling and bruising consistent with hematoma. sclera white, EOMI, no nystagmus. oral mucosa moist Cardiovascular: RRR, S1S2. No pitting edema Pulmonary: CTA bilaterally without rhonchi, rales, expiratory wheezes. No dyspnea Abdominal: Soft, nondistended, NTTP Neurological: Alert, answering questions appropriately, cranial nerves intact, no focal findings, strength equal bilaterally, no facial droop, no slurring Extremities: No gross joint deformity or swelling. AROMI. Neurovascularly intact Skin: Warm, dry. Const: Vital Signs, click to edit/add: Vital Signs - 24 hr 06/05/23 13:26 06/05/23 13:30 06/05/23 14:00 Temperature 97.9 F Pulse Rate Pulse Rate [Pulse Oximeter] 61 64 59 L Respiratory Rate 16 Blood Pressure Blood Pressure [Ri ght Upper Arm] 186/89 H 173/95 H 180/89 H Pulse Oximetry 97 97 92 Oxygen Delivery Me thod Room Air Room Air Room Air 06/05/23 14:31 06/05/23 14:32 06/05/23 14:41 Temperature Pulse Rate 73 64 63 Pulse Rate [Pulse Oximeter] Respiratory Rate Blood Pressure 183/82 H 173/82 H Blood Pressure [Ri ght Upper Arm] Pulse Oximetry 90 95 93 Oxygen Delivery Me thod 06/05/23 14:45 06/05/23 14:52 06/05/23 15:00 Temperature Pulse Rate 64 59 L 61 Pulse Rate [Pulse Oximeter] Respiratory Rate Blood Pressure 168/87 H Blood Pressure [Ri ght Upper Arm] Pulse Oximetry 94 90 92 Oxygen Delivery Me thod 06/05/23 15:02 06/05/23 15:11 06/05/23 15:11 Temperature Pulse Rate 60 74 74 Pulse Rate [Pulse Oximeter] Respiratory Rate Blood Pressure 163/83 H 162/86 H 162/86 H Blood Pressure [Ri ght Upper Arm] Pulse Oximetry 93 91 91 Oxygen Delivery Me thod 06/05/23 15:15 06/05/23 15:30 06/05/23 15:31 Temperature Pulse Rate 61 62 62 Pulse Rate [Pulse Oximeter] Respiratory Rate Blood Pressure 158/78 H Blood Pressure [Ri ght Upper Arm] Pulse Oximetry 92 95 94 Oxygen Delivery Me thod 06/05/23 15:32 06/05/23 15:45 06/05/23 17:35 Temperature Pulse Rate 61 61 61 Pulse Rate [Pulse Oximeter] Respiratory Rate Blood Pressure Blood Pressure [Ri ght Upper Arm] Pulse Oximetry 93 94 93 Oxygen Delivery Me thod 06/05/23 17:36 06/05/23 17:37 06/05/23 17:45 Temperature Pulse Rate 62 60 61 Pulse Rate [Pulse Oximeter] Respiratory Rate Blood Pressure 145/85 H Blood Pressure [Ri ght Upper Arm] Pulse Oximetry 90 92 92 Oxygen Delivery [facility] 06/05/23 18:00 06/05/23 18:15 06/05/23 18:30 Temperature Pulse Rate 61 61 58 L Pulse Rate [Pulse Oximeter] Respiratory Rate Blood Pressure Blood Pressure [Ri ght Upper Arm] Pulse Oximetry 92 93 95 Oxygen Delivery [facility] Hospitalist - H&P: Result Labs Labs: Short CBC 06/05/23 Range/Units 14:25 WBC 8.30 (4.50-11.00) K/uL Hgb 13.9 (12.0-16.0) gm/dL Hct 44.1 (33.0-51.0) % Plt Count 239 (140-440) K/uL BMP 06/05/23 14:25 Sodium 137 Potassium 3.7 Chloride 104 Carbon Dioxide 26 BUN 21 Creatinine 0.6 Glucose 127 H Calcium 9.2 Cardiac Enzymes 06/05/23 Range/Units 14:25 Troponin I < 0.01 L (0.01-0.04) ng/mL Liver Function 06/05/23 Range/Units 14:25 Total Bilirubin 0.4 (0.1-1.5) mg/dL AST 31 (12-35) U/L ALT 21 (4-35) U/L Alkaline Phosphatase 71 (40-150) U/L Albumin 4.4 (3.3-5.0) g/dL Urine 06/05/23 Range/Units 14:17 Urine Color Yellow (Yellow) Urine Appearance Cloudy A (Clear) Urine pH 6.0 (5.0-8.5) Ur Specific [place] 1.020 (1.000-1.030) Urine Protein Negative (Negative) Urine Glucose (UA) Negative (Negative) ECG Attestation: I personally reviewed and interpreted this ECG as follows: ECG interpretation date: 06/05/23 Interpretation: Sinus bradycardia with sinus arrhythmia, ventricular rate 59, QTC 423 Imaging Chest x-ray: Attestation: I have reviewed the pertinent imaging results. Radiologist's impression: Chest 1 views. COMPARISON: July 18, 2019. FINDINGS: Patient is rotated. Cardiovascular and mediastinum: Heart size and vasculature are normal in caliber and appearance. Lungs and pleural spaces: Elevation of the left hemidiaphragm. Lungs are clear. No sign of infiltrate or mass. No sign of pleural effusion. No pneumothorax. Bones and soft tissues: No significant findings. IMPRESSION: Patient is rotated. No acute findings and no significant changes from the prior exam. CT scan - head: Attestation: I have reviewed the pertinent imaging results. Radiologist's impression: CT head without contrast. COMPARISON: MRI brain dated 04/07/2016. FINDINGS: Cerebral parenchyma: No evidence of acute territorial infarct. No acute intraparenchymal hemorrhage. No significant mass effect/midline shift. Normal juarez-white matter differentiation. Extra-axial spaces: No extra-axial collection or hemorrhage. Ventricles: Unremarkable. Calvarium: Small right parietal scalp hematoma. No underlying skull fracture. Visualized paranasal sinuses/mastoid air cells: Polypoid mucosal thickening of the left maxillary sinus. Posterior fossa: No cerebellar tonsillar herniation. Visualized orbits: Thinning of the bilateral lenses. No acute abnormality. IMPRESSION: 1. No acute intracranial abnormality. 2. Small right parietal scalp hematoma. No underlying skull fracture. MRI - head: Attestation: I have reviewed the pertinent imaging results. Radiologist's impression: Brain MRI with contrast. The following sequences were obtained: Sagittal T1 weighted sequence. DWI and ADC mapping sequences. Axial FLAIR and DARRIUS T2 weighted sequences. Susceptibility weighted or GRE sequence. T1 weighted post-contrast sequence(s). 15 cc of Dotarem gadolinium based contrast agent was used. COMPARISON: Brain MRI from 04/07/2016. FINDINGS: No evidence of acute ischemia. No evidence of acute or chronic intracranial blood products. No mass or pathologic intracranial enhancement. Foci of susceptibility artifact within the high cerebral hemispheres, most compatible with microhemorrhages and possibly from amyloid angiopathy. Scattered FLAIR hyperintensities within the supratentorial white matter, typical for chronic microvascular ischemic changes. No hydrocephalus or extra-axial collections. The pituitary gland, parasellar structures and optic chiasm are normal. Posterior fossa is normal. All the major intracranial vascular structures demonstrate normal flow-related signal. The orbital contents are normal. No calvarial or skull base marrow signal abnormality. No obstructive sinus disease. Large right parietal scalp hematoma. IMPRESSION: 1. No acute ischemia or other acute intracranial pathology. 2. No mass or pathologic intracranial enhancement. 3. Susceptibility artifact within the high cerebral hemispheres, most compatible with microhemorrhages and possibly from amyloid angiopathy. 4. Mild chronic microvascular ischemic changes. Stable. 5. Right parietal scalp hematoma. Assessment and Plan Assessment and plan (1) Acute UTI: Problem comment: -UA is cloudy, positive nitrites, 1+ LE, > 100 WBC. UC pending. Afebrile, no leukocytosis. -continue ceftriaxone as started in ED, pending UC and sensitivities. Transition to oral at time of discharge -gentle IV hydration Status: Acute (2) Dizziness: Problem comment: -described as feeling off balance. Denies vertiginous symptoms (which she has had in the remote past). Onset prior to syncopal episode -fall precautions -PT/OT consult Status: Acute (3) Syncope: Problem comment: -perhaps in setting of acute UTI -unknown blood sugar at time of occurrence (EMS check 140 after eating a snack) -CT head and MRI brain without evidence of acute intracranial pathology, CVA/TIA -EKG essentially unremarkable, troponin negative -telemetry, orthostatics -PT/OT consult tomorrow -stress echocardiogram 07/2019 was negative for ischemia, EF 70-75% -consider outpatient echocardiogram with PCP Status: Acute (4) Scalp hematoma: Problem comment: -s/p syncopal episode, uncertain if she struck her head against the frame of the wood chair she was sitting in or the wood window frame (behind chair) at time of occurrence. Unknown if she actually fell or how she got to the chair if she did. -symptomatic cares as needed Status: Acute (5) Diabetes mellitus type 2 in nonobese: Problem comment: -most recent A1c 5.9 -continue metformin once daily with evening meal -diabetic diet, glucose checks ACHS Status: Chronic (6) Hypercholesterolemia: Problem comment: -not currently on medication, being monitored by PCP. Most recent lipid panel 03/2023 reviewed Status: Chronic Plan CODE: Full as discussed with patient and daughter VTE PPX: Enoxaparin Disposition: Observation
[2023-06-05] MEDS: ENOXAPARIN 40 MG/0.4 ML INJ SUBCUT (20:29)
[2023-06-05] MEDS: 0.9 % SODIUM CHLORIDE 1000 ml 1,000 ML 75 ML IV (20:29)
[2023-06-05] MEDS: METFORMIN 500 MG TABLET PO (20:39)
[2023-06-06] VITALS (10 sets, daily range): BP systolic 118–153; BP diastolic 61–112; PULSE 52–74; RESP 16; TEMP 36.7–37.4; O2SAT 91–94
[2023-06-06 06:51] LABS: Hematocrit 36.6 % (33.0-51.0); Hemoglobin* 11.6 gm/dL (12.0-16.0); Mean Corpuscular HGB Conc 32 gm/dL (32-36); Mean Corpuscular Hemoglobin 29 pg (26-34); Mean Corpuscular Volume 92 fL (80-100); Platelet Count* 213 K/uL (140-440); Red Blood Count 3.99 m/uL (4.00-5.20); White Blood Count* 7.56 K/uL (4.50-11.00)
[2023-06-06 06:55] LABS: Slide Review Reflex No
[2023-06-06 07:11] LABS: Chloride* 107 mmol/L (96-114); Potassium* 3.7 mmol/L (3.6-5.1); Sodium* 137 mmol/L (135-149)
[2023-06-06 07:14] LABS: Anion Gap 7 mEq/L (7-15); Blood Urea Nitrogen* 21 mg/dL (7-30); Carbon Dioxide* 23 mmol/L (20-32); Creatinine* 0.5 mg/dL (0.5-1.5); Estimated Glomerular Filt Rate 94 ml/min; Glucose* 104 mg/dL (60-115)
[2023-06-06 07:15] LABS: Calcium* 8.5 mg/dL (8.4-10.6)
--- NOTE | 2023-06-06 07:53 | PC.NURSE ---
pleasant and cooperative. KENAITZE. Hearing aids at home. A&O. A x 1 pivot to BSC, pt very unsteady when standing and states she feels dizzy. VSS.
[2023-06-06 08:59] LABS: C Reactive Protein* 1.6 mg/dL (0.5-1.0)
[2023-06-06] MEDS: METFORMIN 500 MG TABLET PO (09:07)
[2023-06-06] MEDS: cefTRIAXone 1 GM in 0.9 % SODIUM CHLORIDE Mini-bag 100 ML IVPB (09:07)
[2023-06-06] MEDS: 0.9 % SODIUM CHLORIDE 1000 ml 1,000 ML 75 ML IV ×2 (09:07→22:19)
--- NOTE | 2023-06-06 15:15 | P.IMPN_ITS ---
Progress Note: A&P Assessment and plan (1) Acute UTI: Problem details: -UA is cloudy, positive nitrites, 1+ LE, > 100 WBC. UC pending. Afebrile, no leukocytosis. -continue ceftriaxone as started in ED, pending UC and sensitivities. Transition to oral at time of discharge -gentle IV hydration Status: Acute (2) Dizziness: Problem details: -described as feeling off balance. Denies vertiginous symptoms (which she has had in the remote past). Onset prior to syncopal episode -fall precautions -PT/OT consult Status: Acute (3) Syncope: Problem details: -perhaps in setting of acute UTI -unknown blood sugar at time of occurrence (EMS check 140 after eating a snack) -CT head and MRI brain without evidence of acute intracranial pathology, CVA/TIA -EKG essentially unremarkable, troponin negative -telemetry, orthostatics -PT/OT consult tomorrow -stress echocardiogram 07/2019 was negative for ischemia, EF 70-75% -consider outpatient echocardiogram with PCP Status: Acute (4) Scalp hematoma: Problem details: -s/p syncopal episode, uncertain if she struck her head against the frame of the wood chair she was sitting in or the wood window frame (behind chair) at time of occurrence. Unknown if she actually fell or how she got to the chair if she did. -symptomatic cares as needed Status: Acute (5) Diabetes mellitus type 2 in nonobese: Problem details: -most recent A1c 5.9 -continue metformin once daily with evening meal -diabetic diet, glucose checks ACHS Status: Chronic (6) Hypercholesterolemia: Problem details: -not currently on medication, being monitored by PCP. Most recent lipid panel 03/2023 reviewed Status: Chronic Subjective Date Seen: 06/06/23 Interval history: Daily Progress Note - Hospital Medicine Day #: 2 CC: syncope, complicated UTI OVERNIGHT UPDATES FROM STAFF & MED, LAB, IMAGING UPDATES stable night. no fever. feels unsteady on her feet (very unusual for her) c/o of tingling in her right face. -no blood cultures ordered on admission. added hosp day 2 -reviewed MR and CT of brain. added 325mg aspirin to her meds today, 81mg in the am and forward -vital stable. -WBC is stable, normal -CRP is only 1.6 -normal electrolytes -A1C 6.0 Objective: Alert. Good historian. Vitals: see above Lungs: Clear. Cardiac: S1S2. Neuro-cranial nerves completely intact. No evidence facial weakness, droop. Disposition/Potential discharge - Likely to return to previous living situation. Today I spent 50minutes seeing the patient, reviewing [facility]se and EPIC notes/diagnostics, discussing the care plan with our care time that includes social work, PT/OT, pharmacy, RT, shelter and documenting my impressions and plan in the medical record. Exam Const: Vital Signs, click to edit/add: Vital Signs - 24 hr 06/05/23 15:30 06/05/23 15:31 06/05/23 15:32 Temperature Pulse Rate 62 62 61 Pulse Rate [Pulse Oximeter] Pulse Rate [Right Radial] Pulse Rate [orthos tatic lying] Pulse Rate [orthos tatic sitting] Pulse Rate [orthos tatic standing] Respiratory Rate Blood Pressure 158/78 H Blood Pressure [Ri ght Arm] Blood Pressure [or thostatic lying] Blood Pressure [or thostatic sitting] Blood Pressure [or thostatic standing ] Pulse Oximetry 95 94 93 [facility] 15:45 06/05/23 17:35 06/05/23 17:36 Temperature Pulse Rate 61 61 62 Pulse Rate [Pulse Oximeter] Pulse Rate [Right Radial] Pulse Rate [orthos tatic lying] Pulse Rate [orthos tatic sitting] Pulse Rate [orthos tatic standing] Respiratory Rate Blood Pressure 145/85 H Blood Pressure [Ri ght Arm] Blood Pressure [or thostatic lying] Blood Pressure [or thostatic sitting] Blood Pressure [or thostatic standing ] Pulse Oximetry 94 93 90 [facility] 06/05/23 17:37 06/05/23 17:45 06/05/23 18:00 Temperature Pulse Rate 60 61 61 Pulse Rate [Pulse Oximeter] Pulse Rate [Right Radial] Pulse Rate [orthos tatic lying] Pulse Rate [orthos tatic sitting] Pulse Rate [orthos tatic standing] Respiratory Rate Blood Pressure Blood Pressure [Ri ght Arm] Blood Pressure [or thostatic lying] Blood Pressure [or thostatic sitting] Blood Pressure [or thostatic standing ] Pulse Oximetry 92 92 92 [facility] 06/05/23 18:15 06/05/23 18:30 06/05/23 19:00 Temperature 96.7 F L Pulse Rate 61 58 L Pulse Rate [Pulse Oximeter] Pulse Rate [Right Radial] 64 Pulse Rate [orthos tatic lying] Pulse Rate [orthos tatic sitting] Pulse Rate [orthos tatic standing] Respiratory Rate 18 Blood Pressure Blood Pressure [Ri ght Arm] 170/84 H Blood Pressure [or thostatic lying] Blood Pressure [or thostatic sitting] Blood Pressure [or thostatic standing ] Pulse Oximetry 93 95 91 Oxygen Delivery Mi thod Room Air 06/05/23 19:00 06/05/23 19:12 06/05/23 20:30 Temperature 97.9 F Pulse Rate Pulse Rate [Pulse Oximeter] Pulse Rate [Right Radial] 55 L Pulse Rate [orthos tatic lying] Pulse Rate [orthos tatic sitting] Pulse Rate [orthos tatic standing] Respiratory Rate 16 18 16 Blood Pressure Blood Pressure [Ri ght Arm] 164/90 H Blood Pressure [or thostatic lying] Blood Pressure [or thostatic sitting] Blood Pressure [or thostatic standing ] Pulse Oximetry 95 95 95 [facility] Room Air Room Air 06/05/23 21:19 06/05/23 23:00 06/05/23 23:00 Temperature 98 F Pulse Rate 58 L Pulse Rate [Pulse Oximeter] Pulse Rate [Right Radial] 58 L 58 L Pulse Rate [orthos tatic lying] Pulse Rate [orthos tatic sitting] Pulse Rate [orthos tatic standing] Respiratory Rate 16 16 Blood Pressure Blood Pressure [Ri ght Arm] 146/74 H Blood Pressure [or thostatic lying] Blood Pressure [or thostatic sitting] Blood Pressure [or thostatic standing ] Pulse Oximetry 95 [facility] 06/06/23 00:40 06/06/23 03:00 06/06/23 07:23 Temperature 98.4 F Pulse Rate Pulse Rate [Pulse Oximeter] Pulse Rate [Right Radial] 52 L 66 Pulse Rate [orthos tatic lying] 65 Pulse Rate [orthos tatic sitting] 63 Pulse Rate [orthos tatic standing] 74 Respiratory Rate 16 16 Blood Pressure Blood Pressure [Ri ght Arm] 120/61 Blood Pressure [or thostatic lying] 139/67 Blood Pressure [or thostatic sitting] 148/75 H Blood Pressure [or thostatic standing ] 153/112 H Pulse Oximetry 91 Oxygen Delivery Me thod Room Air 06/06/23 07:23 06/06/23 07:38 06/06/23 11:00 Temperature 98.0 F Pulse Rate 58 L Pulse Rate [Pulse Oximeter] 66 56 L Pulse Rate [Right Radial] Pulse Rate [orthos tatic lying] Pulse Rate [orthos tatic sitting] Pulse Rate [orthos tatic standing] Respiratory Rate 16 Blood Pressure Blood Pressure [Ri ght Arm] 118/66 Blood Pressure [or thostatic lying] Blood Pressure [or thostatic sitting] Blood Pressure [or thostatic standing ] Pulse Oximetry 92 Oxygen Delivery Me thod Room Air Labs Labs: Laboratory Results - last 24 hr 06/05/23 06/05/23 06/05/23 14:25 16:00 18:00 WBC RBC Hgb Hct MCV MCH MCHC Plt Count Sodium Potassium Chloride Carbon Dioxide Anion Gap BUN Creatinine Estimated Creat Clear Estimated GFR Glucose Hemoglobin A1c 6.0 H Calcium C-Reactive Protein 1.0 TSH Lab Acknowledgement POC Glucose 115 POC Troponin I 0.00 L 06/06/23 06/06/23 05:48 08:13 WBC 7.56 RBC 3.99 L Hgb 11.6 L Hct 36.6 MCV 92 MCH 29 MCHC 32 Plt Count 213 Sodium 137 Potassium 3.7 Chloride 107 Carbon Dioxide 23 Anion Gap 7 BUN 21 Creatinine 0.5 Estimated Creat Clear 39.70 Estimated GFR 94 Glucose 104 Hemoglobin A1c Calcium 8.5 C-Reactive Protein 1.6 H TSH 1.100 Lab Acknowledgement Test Added POC Glucose POC Troponin I
[2023-06-06] MEDS: ASPIRIN EC 325 MG TABLET PO (16:09)
--- NOTE | 2023-06-06 19:42 | PC.NURSE ---
Pt alert and oriented. VSS. Pt assist of two with gait belt and walker. Pt had no complaints of pain. Pt up to chair multiple times during shift. Pt states she feels ?clearer and less cloudy? than when admitted to hospital. ?
[2023-06-06] MEDS: ENOXAPARIN 40 MG/0.4 ML INJ SUBCUT (21:03)
[2023-06-06] MEDS: SODIUM CHLORIDE 0.9 % (FLUSH) 10 ML SYRINGE 5 ML IVF (21:03)
[2023-06-07] VITALS (8 sets, daily range): BP systolic 136–175; BP diastolic 71–90; PULSE 52–77; RESP 16–20; TEMP 36.3–37.1; O2SAT 93–95
--- NOTE | 2023-06-07 05:42 | PC.NURSE ---
[id number] Pt pleasant and cooperative, slept well during night. c/o right facial numbness and tingling. feels wobbly when pivot transferring, having some difficulty move/lifting RLE. walker, GB, 1 assist during shift. Pt feels like she is going to fall anytime she gets up. denies pain, N/V, headache or vision changes. speech is clear and coherent. no facial drooping noted.
[2023-06-07 06:48] LABS: Hemoglobin* 11.4 gm/dL (12.0-16.0); Mean Corpuscular HGB Conc 32 gm/dL (32-36); Mean Corpuscular Hemoglobin 29 pg (26-34); Mean Corpuscular Volume 92 fL (80-100); White Blood Count* 4.34 K/uL (4.50-11.00)
[2023-06-07 06:58] LABS: HCO3 VBG 25 mmol/L (21-28); PCO2 VBG 38 mmHG (40-50)
[2023-06-07 07:19] LABS: Albumin* 3.2 g/dL (3.3-5.0); Chloride* 112 mmol/L (96-114); Potassium* 4.1 mmol/L (3.6-5.1); Sodium* 139 mmol/L (135-149)
[2023-06-07 07:21] LABS: Creatinine* 0.5 mg/dL (0.5-1.5); Estimated Glomerular Filt Rate 94 ml/min
[2023-06-07 07:22] LABS: Anion Gap 5 mEq/L (7-15); Blood Urea Nitrogen* 18 mg/dL (7-30); Carbon Dioxide* 22 mmol/L (20-32); Glucose* 96 mg/dL (60-115); Phosphorus* 3.7 mg/dL (2.5-4.5)
[2023-06-07 07:23] LABS: Calcium* 8.4 mg/dL (8.4-10.6); Magnesium* 1.9 mg/dL (1.5-2.6)
[2023-06-07 07:25] LABS: C Reactive Protein* 1.2 mg/dL (0.5-1.0)
[2023-06-07 07:55] LABS: Platelet Count* 240 K/uL (140-440); Slide Review Reflex Yes
[2023-06-07 07:57] LABS: Slide Review Acceptable Review (Acceptable)
[2023-06-07] MEDS: cefTRIAXone 1 GM in 0.9 % SODIUM CHLORIDE Mini-bag 100 ML IVPB (08:52)
[2023-06-07] MEDS: ASPIRIN 81 MG TAB.CHEW PO (08:52)
--- NOTE | 2023-06-07 10:55 | PC.NURSE ---
Called for Jory Consult @ [phone]. Awaiting call back from Dr. Cronin
[2023-06-07] MEDS: 0.9 % SODIUM CHLORIDE 1000 ml 1,000 ML 75 ML IV (13:00)
--- NOTE | 2023-06-07 13:40 | CRLHL7_ITS ---
For Patients: As a result of the Century Cures Act, medical imaging exams and procedure reports are released immediately into your electronic medical record. You may view this report before your referring provider. If you have questions, please contact your health care provider. CLINICAL HISTORY: Acute neurological deficit. TECHNIQUE: CTA neck with contrast bolus tracking. 3D angiographic rendering using maximum intensity projection (MIP) and images permanently archived. COMPARISON: None available. FINDINGS: The great vessels are patent. The common carotid arteries are patent. The proximal ICAs are patent without signficant stenoses by NASCET criteria. The more distal cervical ICAs are patent. The origins of the vertebral arteries are patent. The cervical segments of the vertebral arteries are patent. IMPRESSION: Patent cervical arterial vasculature without hemodynamically significant luminal stenosis. Please note that all CT scans at this facility use dose modulation, iterative reconstruction, and/or weight-based dosing when appropriate to reduce radiation dose to as low as reasonably achievable. Dictated by Al Kuhn MD @ 06/07/2023 5:48:01 PM (Electronically Signed)
--- NOTE | 2023-06-07 13:40 | CRLHL7_ITS ---
For Patients: As a result of the Century Cures Act, medical imaging exams and procedure reports are released immediately into your electronic medical record. You may view this report before your referring provider. If you have questions, please contact your health care provider. CLINICAL HISTORY: Acute neurological deficit. TECHNIQUE: CTA head with contrast bolus tracking. 3D angiographic rendering using maximum intensity projection (MIP) and images permanently archived. COMPARISON: None available. FINDINGS: The petrous, cavernous, and supraclinoid segments of the internal carotid arteries are patent. The anterior and middle cerebral arteries are patent. The anterior communicating artery is visualized and is within normal limits. The intracranial vertebral arteries, basilar trunk, and posterior cerebral arteries are patent. No intracranial proximal large vessel occlusion or flow-limiting luminal stenosis. No evidence of cerebral aneurysm. No findings to suggest an arterial-venous shunting lesion. The major dural venous sinuses and deep venous system are patent. IMPRESSION: No intracranial proximal large vessel occlusion, flow-limiting luminal stenosis, or cerebral aneurysm. Please note that all CT scans at this facility use dose modulation, iterative reconstruction, and/or weight-based dosing when appropriate to reduce radiation dose to as low as reasonably achievable. Dictated by Al Kuhn MD @ 06/07/2023 5:50:48 PM (Electronically Signed)
--- NOTE | 2023-06-07 13:44 | PM.IMPN1 ---
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 clinical dx. appreciate neuro consult and coordination of findings. -Aspirin/Plavix -Echo and CTA head and neck ordered 06/07 -permissive HTN -Lipid panel in am -Continue therapies +/- rehab stay Status: Acute (2) Acute UTI: Problem details: -pansensitive ecoli -will treat with oral keflex -5 day treatment Status: Acute (3) Syncope: Problem details: -related to acute CVA (event am of 06/05/23) -mild scalp hematoma -see #1 above -CT head and MRI brain negative -EKG essentially unremarkable, troponin negative -continue acute CVA workup/therapies Status: Acute (4) Scalp hematoma: Problem details: -mild - right sided posterior temporal region. Status: Acute (5) Diabetes mellitus type 2 in nonobese: Problem details: -most recent A1c 5.9 -continue metformin once daily with evening meal -diabetic diet, glucose checks ACHS Status: Chronic Subjective Date Seen: 06/07/23 Interval history: Daily Progress Note - Hospital Medicine Day #: 3 CC: syncope - continued neuro symptoms (new stroke dx 06/07/22), UTI OVERNIGHT UPDATES FROM STAFF & MED, LAB, IMAGING UPDATES stable night. no fever. neuro symptoms continue (paresthesias to the right side of the face, left-sided paresis/mild, mild Josué syndrome) -no blood cultures ordered on admission. added hosp day 2 (06/06/22) -reviewed MR and CT of brain. aspirin started 06/06/23. plavix started 06/07/22. -vital stable. moderate HTN. -WBC is stable, normal -CRP is only 1.6 -normal electrolytes -A1C 6.0 Objective: Alert. Good historian. Vitals: see above Lungs: Clear. Cardiac: S1S2. Neuro-cranial nerves intact. No evidence facial weakness, droop.+Josué's. mild paresis of the left lower extremity. Disposition/Potential discharge - Likely to return to previous living situation. Today I spent 50minutes seeing the patient, reviewing Expanse and EPIC notes/diagnostics, discussing the care plan with our care time that includes social work, PT/OT, pharmacy, RT, retirement and documenting my impressions and plan in the medical record. Exam Const: Vital Signs, click to edit/add: Vital Signs - 24 hr 06/06/23 15:50 06/06/23 15:50 06/06/23 15:59 Temperature 99.3 F Pulse Rate 58 L Pulse Rate [Pulse Oximeter] 57 L 57 L Respiratory Rate 16 Blood Pressure [Ri ght Arm] 137/85 Pulse Oximetry 93 Oxygen Delivery Me thod Room Air 06/06/23 19:00 06/06/23 22:49 06/06/23 23:25 Temperature 99.2 F 99.3 F Pulse Rate 56 L Pulse Rate [Pulse Oximeter] 61 60 Respiratory Rate 16 16 Blood Pressure [Ri ght Arm] 148/71 H 140/72 H Pulse Oximetry 94 92 Oxygen Delivery Me thod Room Air Room Air 06/07/23 03:00 06/07/23 07:15 06/07/23 07:47 Temperature 97.3 F L 98.6 F Pulse Rate 52 L Pulse Rate [Pulse Oximeter] 74 61 Respiratory Rate 16 18 Blood Pressure [Ri ght Arm] 136/71 175/88 H Pulse Oximetry 93 95 Oxygen Delivery Me thod Room Air 06/07/23 11:20 Temperature 98.1 F Pulse Rate Pulse Rate [Pulse Oximeter] 69 Respiratory Rate 16 Blood Pressure [Ri ght Arm] 164/87 H Pulse Oximetry 95 Oxygen Delivery Me thod Room Air Labs Labs: Laboratory Results - last 24 hr 06/07/23 05:56 WBC 4.34 L RBC 3.90 L Hgb 11.4 L Hct 36.0 MCV 92 MCH 29 MCHC 32 Plt Count 240 Diff Slide Review Acceptable Review VBG pH 7.420 VBG pCO2 38 L VBG pO2 151.0 H VBG HCO3 25 Sodium 139 Potassium 4.1 Chloride 112 Carbon Dioxide 22 Anion Gap 5 L BUN 18 Creatinine 0.5 Estimated Creat Clear 39.70 Estimated GFR 94 Glucose 96 Calcium 8.4 Phosphorus 3.7 Magnesium 1.9 C-Reactive Protein 1.2 H Albumin 3.2 L
[2023-06-07] MEDS: CLOPIDOGREL 300 MG TABLET PO (13:45)
[2023-06-07] MEDS: METFORMIN 500 MG TABLET PO (17:12)
--- NOTE | 2023-06-07 18:51 | PC.NURSE ---
Pt alert and oriented. Pt has HTN but otherwise VSS. Pt assist of two with gait belt and walker. Pt had no complaints of pain. Pt up to chair multiple times during shift. [facility] neurologist consulted and and RN in room to help with virtual assessment as needed. Pt started on new medication and was brought had a neck/head CT. Pt has an ECHO scheduled. ?
[2023-06-07] MEDS: ENOXAPARIN 40 MG/0.4 ML INJ SUBCUT (21:24)
[2023-06-07] MEDS: cephALEXin 500 MG CAPSULE PO (21:24)
[2023-06-07] MEDS: SODIUM CHLORIDE 0.9 % (FLUSH) 10 ML SYRINGE 5 ML IVF (21:25)
[2023-06-08] VITALS (10 sets, daily range): BP systolic 119–174; BP diastolic 73–103; PULSE 62–92; RESP 14–18; TEMP 36.3–36.7; O2SAT 92–95
--- NOTE | 2023-06-08 06:23 | PC.NURSE ---
[id number] Pt pleasant and cooperative, continues to state she feels wobbly to R side, especially apparent during ambulation. Pt able to ambulate to BR x2 with walker, GB, 1 assist, does tend to lean to the right with ambulation, close contact necessary with ambulating. denies pain, N/V, chest pain. Denies headache but does state her head hurts where to bumped it during her fall at home.
[2023-06-08 06:55] LABS: Hematocrit 38.2 % (33.0-51.0); Hemoglobin* 12.5 gm/dL (12.0-16.0); Mean Corpuscular HGB Conc 33 gm/dL (32-36); Mean Corpuscular Hemoglobin 29 pg (26-34); Mean Corpuscular Volume 90 fL (80-100); Platelet Count* 231 K/uL (140-440); Red Blood Count 4.27 m/uL (4.00-5.20); White Blood Count* 5.56 K/uL (4.50-11.00)
[2023-06-08 06:58] LABS: Slide Review Reflex No
[2023-06-08] MEDS: cephALEXin 500 MG CAPSULE PO ×2 (09:02→20:43)
[2023-06-08] MEDS: CLOPIDOGREL 75 MG TABLET PO (09:03)
[2023-06-08] MEDS: SODIUM CHLORIDE 0.9 % (FLUSH) 10 ML SYRINGE 5 ML IVF ×2 (09:03→20:44)
[2023-06-08] MEDS: ASPIRIN 81 MG TAB.CHEW PO (09:03)
[2023-06-08 11:45] LABS: Chloride* 108 mmol/L (96-114); Potassium* 3.5 mmol/L (3.6-5.1); Sodium* 140 mmol/L (135-149)
[2023-06-08 11:48] LABS: Anion Gap 6 mEq/L (7-15); Blood Urea Nitrogen* 15 mg/dL (7-30); Carbon Dioxide* 26 mmol/L (20-32); Cholesterol* 208 mg/dL (90-199); Creatinine* 0.5 mg/dL (0.5-1.5); Estimated Glomerular Filt Rate 94 ml/min; Glucose* 106 mg/dL (60-115); Triglycerides* 131 mg/dL (40-149)
[2023-06-08 11:49] LABS: Calcium* 8.7 mg/dL (8.4-10.6); HDL Cholesterol* 41 mg/dL (>=50); LDL Cholesterol Calculated 141 mg/dL (<100)
--- NOTE | 2023-06-08 16:24 | P.IMPN_ITS ---
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 clinical dx. appreciate neuro consult and coordination of findings. -Aspirin/Plavix -Echo and CTA head and neck ordered 06/07 -permissive HTN -Lipid panel in am -Continue therapies +/- rehab stay -continue with telemetry in regard to the bradycardia which could be either from the stroke or from an underlying sick sinus syndrome Status: Acute (2) Acute UTI: Problem details: -pansensitive ecoli -will treat with oral keflex -5 day treatment Status: Acute (3) Syncope: Problem details: -related to acute CVA (event am of 06/05/23) -mild scalp hematoma -see #1 above -CT head and MRI brain negative -EKG essentially unremarkable, troponin negative -continue acute CVA workup/therapies Status: Acute (4) Scalp hematoma: Problem details: -mild - right sided posterior temporal region. Status: Acute (5) Diabetes mellitus type 2 in nonobese: Problem details: -most recent A1c 5.9 -continue metformin once daily with evening meal -diabetic diet, glucose checks ACHS Status: Chronic Plan 1. Reviewed impression with patient, 2 daughters, 1 son in law. 2. Continue with efforts as specified 3. They agreeable with above stated plans and recommendations Time Spent With Patient Total time spent: 30 minutes Subjective Date Seen: 06/08/23 Interval history: Daily Progress Note - Hospital Medicine Day #: 4 CC: syncope - continued neuro symptoms (new stroke dx 06/07/22), UTI Patient indicates she feels well while sitting. Acknowledges ongoing right- sided deficits however. Working with physical and occupational therapy. Exam Narrative: Exam Narrative: Patient had several episodes of rather abrupt and severe bradycardia with heart rates close to 30. Asymptomatic. For most part heart rates are 60-70 beats per minute range. Lungs are clear to auscultation. Heart tones with regular rhythm. Abdomen with active bowel sounds. Right-sided hemiparesis. Const: Vital Signs, click to edit/add: Vital Signs - 24 hr 06/07/23 19:00 06/07/23 23:00 06/07/23 23:00 Temperature 98.8 F 97.6 F Pulse Rate 62 Pulse Rate [Pulse Oximeter] 76 71 Pulse Rate [orthos tatic lying] Respiratory Rate 16 20 Blood Pressure [Ri ght Arm] 165/90 H 167/88 H Blood Pressure [or thostatic lying] Blood Pressure [or thostatic sitting] Blood Pressure [or thostatic standing ] Pulse Oximetry 93 93 Oxygen Delivery Nc thod Room Air Room Air 06/08/23 02:53 06/08/23 07:00 06/08/23 07:00 Temperature 97.4 F L Pulse Rate 65 Pulse Rate [Pulse Oximeter] 64 65 Pulse Rate [orthos tatic lying] Respiratory Rate 18 18 Blood Pressure [Ri ght Arm] 160/80 H Blood Pressure [or thostatic lying] Blood Pressure [or thostatic sitting] Blood Pressure [or thostatic standing ] Pulse Oximetry 92 Oxygen Delivery Nc thod Room Air 06/08/23 07:00 06/08/23 09:16 06/08/23 09:16 Temperature 97.4 F L Pulse Rate 62 Pulse Rate [Pulse Oximeter] 73 64 Pulse Rate [orthos tatic lying] Respiratory Rate 18 18 Blood Pressure [Ri ght Arm] 164/94 H Blood Pressure [or thostatic lying] Blood Pressure [or thostatic sitting] Blood Pressure [or thostatic standing ] Pulse Oximetry 92 Oxygen Delivery Nc thod Room Air 06/08/23 09:16 06/08/23 09:37 06/08/23 11:00 Temperature 97.4 F L 98.1 F Pulse Rate Pulse Rate [Pulse Oximeter] 73 84 Pulse Rate [orthos tatic lying] 92 Respiratory Rate 18 14 Blood Pressure [Ri ght Arm] 164/94 H 172/73 H Blood Pressure [or thostatic lying] 164/94 H Blood Pressure [or thostatic sitting] 158/103 H Blood Pressure [or thostatic standing ] 119/84 Pulse Oximetry 92 94 Oxygen Delivery Nc thod Room Air Room Air Documenting provider has reviewed patient's vital signs: yes Labs Labs: Laboratory Results - last 24 hr 06/08/23 06:10 WBC 5.56 RBC 4.27 Hgb 12.5 Hct 38.2 MCV 90 MCH 29 MCHC 33 Plt Count 231 Sodium 140 Potassium 3.5 L Chloride 108 Carbon Dioxide 26 Anion Gap 6 L BUN 15 Creatinine 0.5 Estimated Creat Clear 39.70 Estimated GFR 94 Glucose 106 Calcium 8.7 Triglycerides 131 Cholesterol 208 H LDL Cholesterol, Calc 141 H HDL Cholesterol 41 L
[2023-06-08] MEDS: METFORMIN 500 MG TABLET PO (18:03)
--- NOTE | 2023-06-08 19:23 | PC.NURSE ---
Patient remains alert and orientedx4. NSR with occasional bradycardia into the 30s. Other vital signs stable. Patient unstable with ambulation. PT recommends assistx2 with a walker. Able to communicate needs.
[2023-06-08] MEDS: ENOXAPARIN 40 MG/0.4 ML INJ SUBCUT (20:43)
[2023-06-09] VITALS (7 sets, daily range): BP systolic 123–148; BP diastolic 70–96; PULSE 64–97; RESP 16–18; TEMP 36.3–37.3; O2SAT 93–98
--- NOTE | 2023-06-09 07:00 | PC.NURSE ---
19-07: pleasant and cooperative. A x 1 with gb and walker, walked halls x 1, pt states she feels ?wobbly? when ambulation. Pt reports numbness to right side of face. HR noted as low as 29 via tele when asleep.
[2023-06-09] MEDS: cephALEXin 500 MG CAPSULE PO ×2 (09:26→22:15)
[2023-06-09] MEDS: CLOPIDOGREL 75 MG TABLET PO (09:26)
[2023-06-09] MEDS: SODIUM CHLORIDE 0.9 % (FLUSH) 10 ML SYRINGE 5 ML IVF ×2 (09:26→22:15)
[2023-06-09] MEDS: ASPIRIN 81 MG TAB.CHEW PO (09:26)
--- NOTE | 2023-06-09 10:13 | NUTR.NU ---
RDN with nutrition screen for diabetic diet. Patient admitted for CVA. Past medical history includes diabetes type 2. She also follows a gluten free diet. Current diet is diabetic with meals intakes mainly 100%. Weight 148lbs; Height 5ft 5in; BMI is 24.7kg/m2. RDN visited with patient and daughter (Veronica) whom reports doing well today. She follows a diabetic diet at home as well as low in added sugars and processed foods. Patient agreed to receive diet education related to stroke. Discussed following a Mediterranean-style/Heart healthy diet using the plate method that includes ? plate non-starchy vegetables and fruit, ? plate whole grains/starch, ? plate healthy protein (fish, poultry, legumes, nuts/seeds), and healthy fats. Discussed limiting saturated fat and sodium intake. Handouts provided to support discussion. RDN contact information provided and encouraged patient to call with questions. RDN to follow up as needed.
--- NOTE | 2023-06-09 12:16 | PC.SOCIAL ---
Discharge planning- Met with pt in room to discuss discharge plans. Pt was aware that she needed SNF for rehab. Pt would like to remain in [place] if possible. Second choice is [facility] in [place]. Pt informs that she has two daughters and one of them would likely transport her. Will keep pt updated. E-mail to Ember Green at [facility]. There are openings, secure e-mailed referral to Ember at [facility]. Social work will follow up as needed.
--- NOTE | 2023-06-09 15:47 | P.IMPN_ITS ---
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 clinical dx. appreciate neuro consult and coordination of findings. -Aspirin/Plavix -Echo and CTA head and neck ordered 06/07 -permissive HTN -Lipid panel in am -Continue therapies +/- rehab stay -continue with telemetry in regard to the bradycardia which could be either from the stroke or from an underlying sick sinus syndrome Status: Acute (2) Acute UTI: Problem details: -pansensitive ecoli -will treat with oral keflex -5 day treatment Status: Acute (3) Syncope: Problem details: -related to acute CVA (event am of 06/05/23) -mild scalp hematoma -see #1 above -CT head and MRI brain negative -EKG essentially unremarkable, troponin negative -continue acute CVA workup/therapies Status: Acute (4) Scalp hematoma: Problem details: -mild - right sided posterior temporal region. Status: Acute (5) Diabetes mellitus type 2 in nonobese: Problem details: -most recent A1c 5.9 -continue metformin once daily with evening meal -diabetic diet, glucose checks ACHS Status: Chronic (6) Bradycardia: Problem details: -likely due to post stroke edema, rather apparent yesterday and less apparent today. Anticipate gradual improvement in this regard. Continue with telemetry for now. Status: Acute Plan 1. Reviewed impression with patient. 2. Recommended transitional care unit which she is agreeable to. 3. Continue with other supportive efforts. Time Spent With Patient Total time spent: 40 minutes Subjective Date Seen: 06/09/23 Interval history: Daily Progress Note - Hospital Medicine Day #: 5 CC: syncope - continued neuro symptoms (new stroke dx 06/07/22), UTI Patient indicates she feels well while sitting. Acknowledges ongoing right- sided deficits however. Working with physical and occupational therapy. Notes less dizziness or disorientation when walking. Learning to take breaks while walking. Exam Narrative: Exam Narrative: Appears comfortable in no acute distress. Alert and oriented to self, place, time situation. Friendly, articulate, and cooperative. Lungs are clear to auscultation. Heart tones with regular rhythm. Ambulates with walker although tends to list to 1 side. Frequency and duration of bradycardia episodes is markedly reduced. Const: Vital Signs, click to edit/add: Vital Signs - 24 hr 06/08/23 19:00 06/08/23 23:00 06/08/23 23:00 Temperature 98.1 F 97.8 F Pulse Rate Pulse Rate [Pulse Oximeter] 78 70 Respiratory Rate 16 16 16 Blood Pressure [Ri ght Arm] 174/91 H 157/87 H Pulse Oximetry 95 95 Oxygen Delivery Me thod Room Air Room Air 06/08/23 23:26 06/09/23 03:00 06/09/23 07:00 Temperature 98 F Pulse Rate 73 64 Pulse Rate [Pulse Oximeter] 71 Respiratory Rate 16 Blood Pressure [Ri ght Arm] 143/74 H Pulse Oximetry 95 Oxygen Delivery Me thod Room Air 06/09/23 08:30 06/09/23 08:30 Temperature 99 F Pulse Rate Pulse Rate [Pulse Oximeter] 82 82 Respiratory Rate 16 16 Blood Pressure [Ri ght Arm] 123/70 Pulse Oximetry 95 Oxygen Delivery Me thod Room Air Documenting provider has reviewed patient's vital signs: yes
[2023-06-09] MEDS: METFORMIN 500 MG TABLET PO (17:35)
[2023-06-09] MEDS: ENOXAPARIN 40 MG/0.4 ML INJ SUBCUT (22:14)
[2023-06-10 03:00] VITALS: BP 145/69; PULSE 79; RESP 16; TEMP 36.1; O2SAT 94
[2023-06-10 04:50] VITALS: PULSE 60
[2023-06-10 07:00] VITALS: PULSE 62
--- NOTE | 2023-06-10 08:04 | PC.NURSE ---
Patient pleasant, alert and oriented. Ambulated with gait belt, walker and assist of one. Used call light when needing assistance. Denied pain.?
[2023-06-10 08:45] VITALS: BP 137/94; PULSE 73; RESP 18; TEMP 36.6; O2SAT 95
[2023-06-10] MEDS: ASPIRIN 81 MG TAB.CHEW PO (09:20)
[2023-06-10] MEDS: CLOPIDOGREL 75 MG TABLET PO (09:20)
--- NOTE | 2023-06-10 11:39 | PC.SOCIAL ---
Received a phone call from Ember Green at [facility]. Pt has been accepted for admission and offered a shared room. Met with pt and provided update. Pt would like to accept room and is ok with having a shared room as she would really like to stay in [place]. Pt's daughter can transport pt to [facility] at 12:30 pm today. Provided update to MD and charge nurse. Provided update to Ember Green at [facility]. Completed preadmission screening. Confirmation #[id number]. Provided PAS # to [facility]. Social work will follow up as needed.
[2023-06-10 12:00] VITALS: BP 139/94; PULSE 73; RESP 18; TEMP 36.8; O2SAT 95
[2023-06-10 13:57] VITALS: BP 139/94; PULSE 73; RESP 18; TEMP 36.8
--- NOTE | 2023-06-10 14:02 | PC.NURSE ---
Mehdi by PT, OT, primary RN and Dr. Lange. No dysphagia with meds. BG 90 prior to bkfst and 86 prior to lunch. Pt dressed in her clothes and ADLs per OT this am. Tele indicates NSR. No IV site. Tele discontinued. Good appetite and adequate output. Pt ordered prunes for bkfst and is passing gas liberally. D/C papers reviewed. Report called to Keesha at [facility] per protocol . Pt discharged via w/c to [facility] with personal belongings and dtr Ma[facility] as transportation at 1300 pm
--- NOTE | 2023-06-22 20:04 | PM.DS1 ---
DS: Providers Provider Date Seen: 06/10/23 Date of admission: 06/07/23 14:11 Primary care physician: Ayaan Gomez MD Admitting Clinician: Laura Wood MD Consults: 06/05/23 19:12 Consult to Occupational Therapy [CONS] Routine Comment: Reason(s) for OT Consult:: Evaluate and Treat Any Restrictions?:: No Restrictions Consult to Physical Therapy [CONS] Routine Comment: Reason(s) for PT Consult:: Evaluate and Treat Any Restrictions?:: No Restrictions Consult to Data Governance Consultant [CONS] Routine Comment: Reason for Consult:: Social Service Consult Attending Physician on discharge: Jesus Lange MD Date of Discharge: 06/10/23 DS: Diagnosis Discharge Diagnosis (1) Syncope: Status: Acute Problem details: -related to acute CVA (event am of 06/05/23) -mild scalp hematoma -see #1 above -CT head and MRI brain negative -EKG essentially unremarkable, troponin negative -continue acute CVA workup/therapies (2) Scalp hematoma: Status: Acute Problem details: -mild - right sided posterior temporal region. 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 clinical dx. appreciate neuro consult and coordination of findings. -Aspirin/Plavix -Echo and CTA head and neck ordered 06/07 -permissive HTN -Lipid panel in am -Continue therapies +/- rehab stay -continue with telemetry in regard to the bradycardia which could be either from the stroke or from an underlying sick sinus syndrome (4) Bradycardia: Status: Acute Problem details: -likely due to post stroke edema, rather apparent yesterday and less apparent today. Anticipate gradual improvement in this regard. Continue with telemetry for now. (5) Acute UTI: Status: Acute Problem details: -pansensitive ecoli -will treat with oral keflex -5 day treatment (6) Diabetes mellitus type 2 in nonobese: Status: Chronic Problem details: -most recent A1c 5.9 -continue metformin once daily with evening meal -diabetic diet, glucose checks ACHS (7) Hypercholesterolemia: Status: Chronic Problem details: -not currently on medication, being monitored by PCP. Most recent lipid panel 03/2023 reviewed DS: Summary Hospital Course Hospital Course: History of present illness: ?Loraine Jewell is a 82 year old female past medical history significant for type 2 diabetes mellitus on metformin, hypercholesterolemia, vitiligo, osteoporosis on calcium and vitamin-D, anxiety, malignant neoplasm of cervix s/p surgery 23 years ago is admitted to the medical floor from the ED for further management acute cystitis with symptomatic dizziness and weakness. Patient reports feeling her normal self last evening and when awaking this morning. Went on her usual vigorous walk this morning and returned home anticipating a zoom workout class. She tells me that when she walked into her home she started to feel flushed, felt that her face, especially the right side, was very cold and numb like (temperature was less than 10? this morning with a cold wind chill). She then reports feeling weak and dizzy (off balance, not vertiginous) and needing to use her hands to hold on to surrounding appliances/furniture to walk. This was after 10:00 a.m.. She then awoke around noon, finding herself in a wood dining chair, with a high back, which rests upon the wooden frame of the window. Her coat was on the floor though she does not remember taking it off. She initially thought maybe she fell but had no recollection then how she got to the chair. She denies any pain, bruising, scrapes of the knees, hands. She has no pain in her joints from a fall. She has a bump on the right side of her head but when speaking with her and her daughter, she very well may have struck the back of her head on the chair or window frame when sitting. When she awoke, she called her daughter who came to her home. She did not check her blood sugar but did have a cheese stick. Upon their arrival, EMS checked her blood sugar after her snack and it was 140. Currently, patient denies headache. Scalp hematoma is tender when touched. Continues to feel dizzy, off balance as she describes it, without vertigo like symptoms. Feels like she could fall. Denies recent fevers or chills. Denies nausea, vomiting, diarrhea. Denies urinary symptoms though admits urine might have been cloudy for the past several days. Patient is a nonsmoker. Rare alcohol use.? Over time it was discerned that patient had a medullary stroke. Consultation undertaken with stroke Neurology. Weight here to their recommendations. Discharge for rehabilitation and follow-up. Other problems managed without comes as specified above. Time Spent with Patient Time attestation: Total time spent providing and/or coordinating discharge services: Exam Narrative: Exam Narrative: Appears comfortable in no acute distress. Alert and oriented to self, place, time situation. Friendly, articulate, and cooperative. Lungs are clear to auscultation. Heart tones with regular rhythm. Ambulates with walker although tends to list to 1 side. Frequency and duration of bradycardia episodes is markedly reduced. DS: Data Imaging CT scan - head: Attestation: I have reviewed the pertinent imaging results. Radiologist's impression: IMPRESSION: 1. No acute intracranial abnormality. 2. Small right parietal scalp hematoma. No underlying skull fracture. CT angiogram of head and neck: Attestation: I have reviewed the pertinent imaging results. Radiologist's impression: IMPRESSION: No intracranial proximal large vessel occlusion, flow-limiting luminal stenosis, or cerebral aneurysm. IMPRESSION: Patent cervical arterial vasculature without hemodynamically significant luminal stenosis. MR Brain: Attestation: I have reviewed the pertinent imaging results. Radiologist's impression: IMPRESSION: 1. No acute ischemia or other acute intracranial pathology. 2. No mass or pathologic intracranial enhancement. 3. Susceptibility artifact within the high cerebral hemispheres, most compatible with microhemorrhages and possibly from amyloid angiopathy. 4. Mild chronic microvascular ischemic changes. Stable. 5. Right parietal scalp hematoma. Discharge Plan Discharge Disposition: [facility] Discharge Location: [facility] Date of Admission: 06/07/23 14:11 Attending Provider on Discharge: Jesus Lange Consulting Providers: Jesus Lange; Pema Ortiz Primary Care Provider: Ayaan Gomez Condition: Stable Anticipated Discharge Date/Time: 06/10/23 13:00 Discharge Medications: New clopidogrel 75 mg Tablet 75 mg PO DAILY 30 Days Qty: 30 0RF aspirin [Children's Aspirin] 81 mg Tablet,Chewable 81 mg PO DAILY 30 Days Qty: 30 1RF Continued metformin 500 mg tablet 500 mg PO DAILY alendronate 70 mg tablet 70 mg PO QWEEK Patient Comments: TAKE 1 TABLET BY MOUTH ONE TIME A WEEK IN THE MORNING ON AN EMPTY STOMACH AND WITH FULL GLASS OF WATER. DO NOT LIE DOWN FOR 1 HOUR metronidazole 1 % gel 1 applic topical DAILY PRN cholecalciferol (vitamin D3) 25 mcg (1,000 unit) capsule 25 mcg PO DAILY calcium carbonate [Oyster Shell Calcium 500] 500 mg calcium (1,250 mg) tablet 500 mg PO DAILY Discharge Orders: Discharge Order (Routine); Ordered 06/10/23 Ordered By: Jesus Lange Consulting provider completed their portion of the discharge: Yes Additional Instructions: 1. SNF clinician to see in next 1 week please; 2. Patient would benefit from Zio patch to further assess nocturnal bradycardia - please consider ordering this to monitor; 3. Needs neurology follow-up in 4-6 weeks s/p stroke of medulla oblongata; Activity Level: No Restrictions, Activity as Tolerated and Use Walker Discharge Diet: Heart Healthy (2 gm sodium, low fat) Follow Up Appointments: Ayaan Gomez MD [Primary Care Provider] - Forms: [employer] Info Instructions Admit to: SNF Discharge Potential: Good Length of Stay: <30 days Can use facility standing orders?: Yes Code Status: Full Code Rehab Potential: Good Therapy: Physical Therapy and Occupational Therapy Therapy Orders: Evaluate and Treat Oxygen: No Urinary Catheter: No Glucose Checks: BID at alternating times for 1 week Orders are good >30 days: Yes Signature: Jesus Lange
== END 2023-06-10 13:00 | DRG 65 ==
LOC: ED 18:17 → MEDSURG 18:46
PROVIDERS: Family Medicine; Physician Assistant; Admitting Provider Family Medicine; Emergency Provider Student in an Organized Health Care Education/Training Program; PCP Surgery; Visit Provider Family Medicine
DX: I63.9 Cerebral infarction, unspecified; N39.0 Urinary tract infection, site not specified; B96.20 Unspecified Escherichia coli [E. coli] as the cause of diseases classified elsewhere; R20.2 Paresthesia of skin; R00.1 Bradycardia, unspecified; R55 Syncope and collapse; R42 Dizziness and giddiness; I10 Essential (primary) hypertension; G90.2 Horner's syndrome; E11.9 Type 2 diabetes mellitus without complications; Z79.84 Long term (current) use of oral hypoglycemic drugs; F41.9 Anxiety disorder, unspecified; M81.0 Age-related osteoporosis without current pathological fracture; E78.00 Pure hypercholesterolemia, unspecified; Z85.41 Personal history of malignant neoplasm of cervix uteri
CPT/HCPCS: 36415; 70450; 70496; 70498; 70553; 71045; 80048; 80053; 80061; 80069; 81001; 82803; 82947; 82962; 83036; 83735; 84443; 84484; 85025; 85027; 86140; 87040; 87086; 87186; 87631; 93005; 93306; 97110; 97112; 97116; 97162; 97165; 97530; 97535; 99285; 99291; G0378; A9270; A9575; G0390; J0696; J1650; J2060; J2405; J7030; J7120; Q9967

== ENCOUNTER 2024-02-16 11:15 | Outpatient (RCR) | payer MEDICARE, OTHER, SELFPAY | END 2024-02-17 07:59 | disposition home or self-care (01) | PROVIDERS: PCP Surgery; Visit Provider Family Medicine | DX: R26.89 Other abnormalities of gait and mobility (principal); R53.1 Weakness; Z51.89 Encounter for other specified aftercare | CPT/HCPCS: 97110; 97112; 97140; 97162; 97535 ==